=== PATIENT | male | born 1975 | race Caucasian/White ===

== ENCOUNTER 2020-06-10 09:57 | Outpatient (REF) | payer MEDICARE, MEDICAID, SELFPAY ==
[2020-06-10 11:09] LABS: MANUAL DIFF FLAG NO
[2020-06-10 11:33] LABS: Basophils Absolute Auto 0.1 X10*3/uL (0.0-0.2); Basophils Percent Auto 0.8 % (0-2); Eosinophils Percent Auto 0.6 % (0-4); Hematocrit 40.9 % (42-52); Hemoglobin 14.2 g/dl (14.0-18.0); Imm Gran Abs Auto 0.03 X10*3/uL (0.00-0.03); Imm Gran Pct Auto 0.5 % (0.0-0.4); Lymphocytes Absolute Auto 1.2 X10*3/uL (1.2-4.9); Lymphocytes Percent Auto 18.3 % (20-40); Mean Corpuscular HGB Conc 34.7 g/dl (31.0-36.0); Mean Corpuscular Hemoglobin 32.5 pg (27.0-33.0); Mean Corpuscular Volume 93.6 fL (80-98); Monocytes Absolute Auto 0.7 X10*3/uL (0.1-1.2); Monocytes Percent Auto 10.7 % (2-11); Neutrophils Absolute Auto 4.5 X10*3/uL (2.0-8.3); Neutrophils Percent Auto 69.1 % (45-73); Platelet Count 316 X10*3/uL (160-400); Red Blood Count 4.37 X10*6/uL (4.60-5.80); Red Cell Distribution Width 11.7 % (11.0-16.0); White Blood Count 6.5 X10*3/uL (4.8-10.8)
[2020-06-10 11:48] LABS: Alanine Aminotransferase 16 U/L (0-40); Albumin Level 5.2 g/dL (3.5-5.0); Alkaline Phosphatase 38 U/L (39-117); Anion Gap 15 (12-20); Aspartate Amino Transferase 16 U/L (5-37); Bilirubin Total 0.8 mg/dL (0.0-1.0); Blood Urea Nitrogen 19 mg/dL (9-16); Calcium 9.7 mg/dL (8.4-10.2); Carbon Dioxide 25 mmol/L (22-29); Chloride 100 mmol/L (96-108); Cholesterol 148 mg/dL; Estimated Glomerular Filt Rate > 60; Glucose Fasting 114 mg/dL (60-99); HDL Cholesterol 58 mg/dL; LDL Cholesterol Calculated 80 mg/dl; Potassium 4.2 mmol/l (3.3-5.1); Sodium 136 mmol/L (135-145); Total Protein 7.8 g/dL (6.5-8.0); Triglycerides 50 mg/dL
[2020-06-10 12:09] LABS: T4 Thyroxine 8.9 ug/dL (4.5-12.0); Thyroid Stimulating Hormone 0.53 mIU/mL (0.32-4.0)
[2020-06-10 12:33] LABS: Folate 16.3 ng/mL (> or = 4.0); Vitamin B12 307 pg/mL (200-900)
== END 2020-06-10 09:58 | disposition home or self-care (01) ==
LOC: HO.HMGCLDS 09:57
PROVIDERS: PCP Internal Medicine; Visit Provider Internal Medicine
DX: Z00.00 Encounter for general adult medical examination without abnormal findings (principal); F31.9 Bipolar disorder, unspecified; I10 Essential (primary) hypertension; J45.909 Unspecified asthma, uncomplicated
CPT/HCPCS: 36415; 80053; 80061; 82607; 82746; 84436; 84443; 85025

== ENCOUNTER → 2020-10-01 14:35 | Outpatient (BNVA) | payer MEDICARE, MEDICAID, SELFPAY | PROVIDERS: PCP Internal Medicine; Visit Provider Internal Medicine | DX: Q25.1 Coarctation of aorta (principal); I10 Essential (primary) hypertension | CPT/HCPCS: 93005; 99212 ==

== ENCOUNTER 2021-02-19 09:36 | Outpatient (REF) | payer MEDICARE, MEDICAID, SELFPAY ==
--- NOTE | ~2021-02-19 | XR_ITS ---
EXAMINATION: XR LUMBOSACRAL SPINE CLINICAL INFORMATION: Radiculopathy COMPARISON: Previous x-ray December 2012 TECHNIQUE: Three views of the lumbosacral spine. FINDINGS: There is mild rotary scoliosis convex to the right. Bone alignment is otherwise normal. No fracture or dislocation is seen. There may be degenerative disc disease at L5-S1 and lower lumbar spine facet arthritis. Paraspinal soft tissues are normal. XR/XR lumbar spine 2-3V IMPRESSION: Mild scoliosis convex to the right. Question mild degenerative disc disease at L5-S1 and lower lumbar spine facet arthritis.
== END 2021-02-19 09:37 | disposition home or self-care (01) ==
LOC: HO.HMGCX 09:36
PROVIDERS: PCP Internal Medicine; Visit Provider Physician Assistant
DX: M54.16 Radiculopathy, lumbar region (principal)
CPT/HCPCS: 72100

== ENCOUNTER 2021-04-01 14:00 | Outpatient (RCR) | payer MEDICARE, MEDICAID, SELFPAY ==
--- NOTE | 2021-03-09 18:53 | MHC.PT.EP ---
[facility] [place] Office [place] Office [place] Office [address] Mercy Hunt [address] [phone] F: [phone] F: [phone] F: [phone] F: [phone] Physical Therapy Plan of Care Date of Evaluation: Date of Surgery: Diagnosis: Lumbosacral DDD with R sided sciatica. Assessment: Pt is 45 yo/m referred to PT for eval/treat of his Lumbosacral DDD and R sided sciatica. S/s are consistent with lumbopelvic dysfunction resulting in pt being unable to lift heavy objects of floor and decreased tolerance with standing activities for longer duration due to pain in his R lateral thigh and around R lateral lumbar region secondary to asymmetrical pelvic bone, decreased LE strength, and LLD. Pt is deemed an appropriate candidate to receive skilled PT in order to address his physical limitations to improve his functional ability. Frequency and Duration: The patient will be seen 2x/wk for 4wk Short Term Goals: initiate HEP with evidence compliance Retirement Goals: pt will report being able to lift heavy weights w/o increased pain; initial rating - pain prevent me from lifting heavy weights off of the floor (Jose) pt will report being able to stand as long as he wanted without increased pain; initial rating - pain prevents me from standing more than 1 hour (Jose) Treatment Plan: Modalities to reduce pain, spasms and effusion. Manual therapy to restore motion and function. Therapeutic exercise to improve strength and flexibility. Neuromuscular re-education for posture and balance. Therapeutic activities to return to functional activities of daily living. Electronically signed by: Farrukh Salinas PT Please sign and return to therapist. Thank you for your referral.
--- NOTE | 2021-04-01 15:10 | MHC.PT.DC ---
[facility] [place] Office [place] Office [place] Office [address] Mercy Hunt [address] [phone] F: [phone] F: [phone] F: [phone] F: [phone] Physical Therapy Discharge Report Diagnosis: Lumbosacral DDD with R sided sciatica. Date of Surgery: Date of Evaluation: 03/09/21 Date of Discharge: 04/01/21 Treatments to Date: 6 Cancellations to Date: No Shows to Date: Discharge Status: Achieved Goals Improved Function Independent with HEP Discharge Summary: Guerrero initially came to PT for his LBP that traveled to his R buttock which limited his functional abilities. Upon evaluation, listed impairments were found: asymmetrical pelvic bone, decreased LE strength, and LLD. Guerrero has been extremely compliant with his HEP and active participant during treatment session. W/in just 6 visits, guerrero was able to accomplish both this short and long term acute care registered nurse goals. On the day of DC, Guerrero is not experiencing any pain and is able to fully participate in all of his functional activities without pain or physical limitations. At this time, PT agrees it is appropriate to DC guerrero and encourages him to cont. participating in his HEP. Electronically signed by: Francis Harper PT Please sign and return to therapist. Thank you for your referral.
== END 2021-04-01 15:11 | disposition home or self-care (01) ==
LOC: HO.PTCHIC 14:00
PROVIDERS: PCP Internal Medicine; Visit Provider Physician Assistant
DX: M51.9 Unspecified thoracic, thoracolumbar and lumbosacral intervertebral disc disorder (principal); M54.31 Sciatica, right side
CPT/HCPCS: 97110; 97140; 97161

== ENCOUNTER 2021-06-26 09:09 | Outpatient (REF) | payer MEDICARE, MEDICAID, SELFPAY ==
[2021-06-26 11:11] LABS: MANUAL DIFF FLAG NO
[2021-06-26 11:18] LABS: Basophils Absolute Auto 0.1 X10*3/uL (0.0-0.2); Basophils Percent Auto 0.8 % (0-2); Eosinophils Absolute Auto 0.1 X10*3/uL (0.0-0.4); Eosinophils Percent Auto 1.1 % (0-4); Hematocrit 43.4 % (42.0-52.0); Imm Gran Abs Auto 0.02 X10*3/uL (0.00-0.03); Imm Gran Pct Auto 0.3 % (0.0-0.4); Lymphocytes Absolute Auto 0.9 X10*3/uL (1.2-4.9); Lymphocytes Percent Auto 15.2 % (20-40); Mean Corpuscular HGB Conc 34.6 g/dl (31.0-36.0); Mean Corpuscular Hemoglobin 32.4 pg (27.0-33.0); Mean Corpuscular Volume 93.7 fL (80.0-98.0); Mean Platelet Volume 10.5 fL (9.4-12.4); Monocytes Absolute Auto 0.5 X10*3/uL (0.1-1.2); Monocytes Percent Auto 8.3 % (2-11); Neutrophils Absolute Auto 4.6 x10*3/uL (2.0-8.3); Neutrophils Percent Auto 74.3 % (45-73); Platelet Count 270 X10*3/uL (160-400); Red Blood Count 4.63 X10*6/uL (4.60-5.80); Red Cell Distribution Width 11.7 % (11.0-16.0); White Blood Count 6.2 X10*3/uL (4.8-10.8)
[2021-06-26 11:28] LABS: Estimated Average Glucose 108 mg/dL; Hemoglobin A1c % 5.4 %
[2021-06-26 11:37] LABS: Alanine Aminotransferase 18 U/L (0-40); Albumin Level 4.8 g/dL (3.5-5.0); Alkaline Phosphatase 36 U/L (39-117); Anion Gap 12 (12-20); Aspartate Amino Transferase 15 U/L (5-37); Bilirubin Total 0.8 mg/dL (0.0-1.0); Blood Urea Nitrogen 15 mg/dL (9-16); Calcium 9.9 mg/dL (8.4-10.2); Carbon Dioxide 26 mmol/L (22-29); Chloride 102 mmol/L (96-108); Cholesterol 164 mg/dL; Estimated Glomerular Filt Rate > 60; Glucose Random 96 mg/dL (60-115); HDL Cholesterol 46 mg/dL; LDL Cholesterol Calculated 105 mg/dl; Potassium 4.4 mmol/L (3.3-5.1); Sodium 136 mmol/L (135-145); Total Protein 7.5 g/dL (6.5-8.0); Triglycerides 68 mg/dL
[2021-06-26 11:51] LABS: Free T4 (Free Thyroxine) 1.05 ng/dL (0.71-1.85); Thyroid Stimulating Hormone 0.56 uIU/mL (0.32-4.0)
[2021-06-28 04:29] LABS: Folate 13.5 ng/mL (> or = 4.0); Vitamin B12 280 pg/mL (200-900)
== END 2021-06-26 09:10 | disposition home or self-care (01) ==
LOC: HO.HMGCLDS 09:09
PROVIDERS: PCP Internal Medicine; Visit Provider Internal Medicine
DX: R73.02 Impaired glucose tolerance (oral) (principal); E78.00 Pure hypercholesterolemia, unspecified
CPT/HCPCS: 36415; 80053; 80061; 82607; 82746; 83036; 84439; 84443; 85025

== ENCOUNTER 2021-09-01 10:21 | Outpatient (REF) | payer MEDICARE, MEDICAID, SELFPAY ==
[2021-09-01 11:57] LABS: Anion Gap 12 (12-20); Blood Urea Nitrogen 13 mg/dL (9-16); Calcium 9.9 mg/dL (8.4-10.2); Carbon Dioxide 29 mmol/L (22-29); Chloride 101 mmol/L (96-108); Estimated Glomerular Filt Rate > 60; Glucose Random 86 mg/dL (60-115); Potassium 4.5 mmol/L (3.3-5.1); Sodium 137 mmol/L (135-145)
== END 2021-09-01 10:22 | disposition home or self-care (01) ==
LOC: HO.HMGCLDS 10:21
PROVIDERS: Visit Provider Internal Medicine
DX: I10 Essential (primary) hypertension (principal)
CPT/HCPCS: 36415; 80048

== ENCOUNTER → 2021-09-09 12:50 | Outpatient (REF) | payer MEDICARE, MEDICAID, SELFPAY ==
--- NOTE | 2021-09-09 12:57 | CA_ITS ---
Transthoracic Echocardiogram Patient (Last, First, Middle): Guerrero Rahman E Gender: Male Date of : 1975 Age: 46 Procedure Date: 09/09/2021 Procedure Type: Transthoracic Echocardiogram Location: OP Height: 185.42 cm Weight: 101.15 kg BSA: 2.25 m2 Heart Rate: bpm BP: 130 / 80 mmHg Clockmaker Apprentice: WILD Referring MD: David Vanegas MD Symptoms: Q25.1 - Coarctation of aorta Study Quality: Fair ECG Rhythm: Sinus Conclusions: - The left ventricular systolic function is normal. The calculated ejection fraction is 56% by biplane method. - There is no dilatation of the ascending aorta measuring 2.80 cm and no dilatation of the aortic arch measuring 2.40 cm. - Peak gradient at proximal descending thoracic aorta 13mmHg. Mildly elevated. Findings Left Ventricle Normal left ventricular cavity size. There is normal left ventricular wall thickness. The left ventricular systolic function is normal. The calculated ejection fraction is 56% by biplane method. There is no evidence of regional wall motion abnormalities. Diastolic function is normal for age. Right Ventricle Normal right ventricular cavity size and systolic function. Atria Both atria are normal in size. Aortic Valve There is a normal trileaflet aortic valve. There is no aortic valve stenosis. There is trace (trivial) aortic valve regurgitation. Mitral Valve The mitral valve appears normal. There is no mitral valve regurgitation. There is no mitral valve stenosis. Pulmonic Valve The pulmonic valve was not well visualized. Tricuspid Valve Normal tricuspid valve structure. There is trace tricuspid valve regurgitation. The pulmonary artery systolic pressure is normal. Great Vessels There is no dilatation of the ascending aorta measuring 2.80 cm and no dilatation of the aortic arch measuring 2.40 cm. Peak gradient at proximal descending thoracic aorta 13mmHg. Venous The inferior vena cava is normal in size and collapses greater than 50% with inspiration. Pericardium/Pleural There is no evidence of pericardial effusion. Prior Study Comparison No significant change compared to prior study dated: 08/28/2018. Aortic velocities not previously described. Measurements 2D Linear Measurements IVSd: 1.01 0.6-0.9/0.6-1.0 cm LVIDd: 4.40 3.9-5.3/4.2-5.9 cm LVIDd Index: 1.96 2.4-3.2/2.2-3.1 cm/m2 LVIDs: 2.76 2.0-3.6 cm LVPWd: 0.96 0.7-1.1 cm Ao Root: 4.10 2.1-3.5 cm LA Diam: 3.00 2.7-3.8/3.0-4.0 cm LAIDs Index: 1.33 1.5-2.3 cm/m2 LV Mass: 180.60 67-162/88-224 g LV Mass Index: 80.27 43-95/49-115 g/m2 LVOT Diam: 2.30 3.0+(-)1.3 cm 2D Systolic Function EF 4C: 57.80 >55% EF 2C: 51.20 >55% EF BiP: 56.00 >55% Mitral Valve MV Pk E: 0.46 MV PK A: 0.63 MV Decel Time: 212.00 E/A: 0.70 E'Lateral: 9.57 E'Medial: 12.70 E/E' Med: 3.60 E/E' Lat: 4.80 PHT: 62.00 MVA PHT: 3.[address] [place]: 2.17 Aortic Valve AoV Pk Mychal: 1.16 AoV Mn Mychal: 0.87 AoV VTI: 0.18 AoV Pk Grad: 5.00 Aov Mn Grad: 3.00 ISSAC Cont.VTI: 3.36 LVOT LVOT Pk Mychal: 0.94 LVOT Mn Mychal: 0.62 LVOT VTI: 0.15 LVOT Pk Grad: 4.00 LVOT Mn Grad: 2.00 LVOT Diam: 2.30 LVOT Area: 4.15 Diastolic Function MV Pk E: 0.46 MV Pk A: 0.63 E/A: 0.70 E'Medial: 12.70 E/E' Med: 3.60 E' Laterial: 9.57 E/E' Lat: 4.80 Right Ventricle TAPSE (mm): 22.00 TVS' Mychal: 15.00 Tricuspid Valve TR Pk Mychal: 2.52 TR Pk Grad: 25.00 RA Press: 3.00 RVSP: 28.00 Great Vessels Aorta Ao Root-2D: 4.10 2.0-3.7 cm Ao Asc: 2.80 2.1-3.4 cm Ao Arch: 2.40 Updated in Other Vendor System with Status of Final David Vanegas MD electronically signed on 09/11/2021 1:15:32 PM with status of Final
== END ==
LOC: HO.CARD 12:50
PROVIDERS: PCP Internal Medicine; Visit Provider Internal Medicine
DX: Q25.1 Coarctation of aorta (principal)
CPT/HCPCS: 93306

== ENCOUNTER → 2021-10-04 14:29 | Outpatient (BNVA) | payer MEDICARE, MEDICAID, SELFPAY | PROVIDERS: PCP Internal Medicine; Referring Provider Internal Medicine; Visit Provider Internal Medicine | DX: I10 Essential (primary) hypertension (principal); Q25.1 Coarctation of aorta; Z79.899 Other long term (current) drug therapy | CPT/HCPCS: 93005; 99212 ==

== ENCOUNTER → 2022-09-29 08:40 | Outpatient (REF) | payer MEDICARE, MEDICAID, SELFPAY ==
--- NOTE | 2022-09-29 08:44 | CA_ITS ---
Transthoracic Echocardiogram Patient (Last, First, Middle): Guerrero Rahman E Gender: Male Date of : 1975 Age: 47 Procedure Date: 09/29/2022 Procedure Type: Transthoracic Echocardiogram Location: OP Height: 185.42 cm Weight: 95.71 kg BSA: 2.20 m2 Heart Rate: 60 bpm BP: 125 / 80 mmHg Welder Fitter: XIAO Referring MD: David Vanegas MD Symptoms: Q25.1 - Coarctation of aorta Study Quality: Fair ECG Rhythm: Sinus Conclusions: - The left ventricular systolic function is low normal. The visually estimated ejection fraction is between 50-55%. - Peak gradient across proximal descending thoracic aorta 21mmHg. - Descending part of arch measurement about 1.3cm, probably site of co-arctation repair. Findings Left Ventricle Normal left ventricular cavity size. There is normal left ventricular wall thickness. The left ventricular systolic function is low normal. The visually estimated ejection fraction is between 50-55%. There is no evidence of regional wall motion abnormalities. Diastolic function is normal for age. Right Ventricle Normal right ventricular cavity size and systolic function. Atria Both atria are normal in size. Aortic Valve There is a normal trileaflet aortic valve. There is no aortic valve stenosis. There is no aortic valve regurgitation. Mitral Valve The mitral valve appears normal. There is no mitral valve regurgitation. There is no mitral valve stenosis. Pulmonic Valve The pulmonic valve is likely normal. Tricuspid Valve Normal tricuspid valve structure. There is trace tricuspid valve regurgitation. There is no evidence of pulmonary hypertension. Great Vessels The asc aorta is normal in size. Peak gradient across proximal descending thoracic aorta 21mmHg. Descending part of arch measurement about 1.3cm, probably site of co-arctation repair. Some measurement as much as 0.9cm, but not clear if accurate or not. Venous The inferior vena cava is normal in size and collapses greater than 50% with inspiration. Pericardium/Pleural There is no evidence of pericardial effusion. Prior Study Comparison Changes noted compared to prior study dated: 09/09/2021. Increase in aortic gradients. Measurements 2D Linear Measurements IVSd: 0.96 0.6-0.9/0.6-1.0 cm LVIDd: 4.20 3.9-5.3/4.2-5.9 cm LVIDd Index: 1.91 2.4-3.2/2.2-3.1 cm/m2 LVIDs: 2.89 2.0-3.6 cm LVPWd: 1.02 0.7-1.1 cm LA Diam: 3.10 2.7-3.8/3.0-4.0 cm LAIDs Index: 1.41 1.5-2.3 cm/m2 LV Mass: 168.66 67-162/88-224 g LV Mass Index: 76.66 43-95/49-115 g/m2 LVOT Diam: 2.20 3.0+(-)1.3 cm 2D Systolic Function EF 4C: 48.70 >55% EF 2C: 49.40 >55% EF BiP: 47.90 >55% Mitral Valve MV Pk E: 0.52 MV PK A: 0.74 MV Decel Time: 241.00 E/A: 0.70 E'Lateral: 10.70 E'Medial: 6.96 E/E' Med: 7.40 E/E' Lat: 4.80 PHT: 71.00 MVA PHT: 3.10 Decel [place]: 2.15 Aortic Valve AoV Pk Mychal: 1.29 AoV Mn Mychal: 0.84 AoV VTI: 0.25 AoV Pk Grad: 7.00 Aov Mn Grad: 3.00 ISSAC Cont.VTI: 2.39 LVOT LVOT Pk Mychal: 0.80 LVOT Mn Mychal: 0.57 LVOT VTI: 0.16 LVOT Pk Grad: 3.00 LVOT Mn Grad: 2.00 LVOT Diam: 2.20 LVOT Area: 3.80 Diastolic Function MV Pk E: 0.52 MV Pk A: 0.74 E/A: 0.70 E'Medial: 6.96 E/E' Med: 7.40 E' Laterial: 10.70 E/E' Lat: 4.80 Right Ventricle TAPSE (mm): 20.90 TVS' Mychal: 16.00 Tricuspid Valve TR Pk Mychal: 1.64 TR Pk Grad: 11.00 RA Press: 3.00 RVSP: 14.00 Great Vessels Aorta Sinus of Valsalva: 3.80 2.0-3.5 cm Ao Asc: 3.00 2.1-3.4 cm Ao Arch: 2.10 Ao Desc: 1.30 Pulmonary Valve PV Pk Mychal: 0.79 Peak PV Grad: 3.00 Updated in Other Vendor System with Status of Final David Vanegas MD electronically signed on 10/11/2022 11:40:11 AM with status of Final
== END ==
LOC: HO.CARD 08:40
PROVIDERS: Visit Provider Internal Medicine
DX: Q25.1 Coarctation of aorta (principal)
CPT/HCPCS: 93306

== ENCOUNTER 2022-11-16 12:26 | Outpatient (REF) | payer MEDICARE, MEDICAID, SELFPAY ==
[2022-11-16 14:44] LABS: Anion Gap 11 (12-20); Blood Urea Nitrogen 20 mg/dL (9-16); Calcium 9.4 mg/dL (8.4-10.2); Carbon Dioxide 29 mmol/L (22-29); Chloride 105 mmol/L (96-108); Estimated Glomerular Filt Rate > 60; Glucose Random 109 mg/dL (60-115); Potassium 3.9 mmol/L (3.3-5.1); Sodium 141 mmol/L (135-145)
== END 2022-11-16 12:27 | disposition home or self-care (01) ==
LOC: HO.HMGCLDS 12:26
PROVIDERS: PCP Internal Medicine; Visit Provider Internal Medicine
DX: Z01.812 Encounter for preprocedural laboratory examination (principal)
CPT/HCPCS: 36415; 80048

== ENCOUNTER → 2022-12-07 08:27 | Outpatient (BNVA) | payer MEDICARE, MEDICAID, SELFPAY | PROVIDERS: PCP Internal Medicine; Referring Provider Internal Medicine; Visit Provider Internal Medicine | DX: Q25.1 Coarctation of aorta (principal); I10 Essential (primary) hypertension | CPT/HCPCS: 93005; 99212 ==

== ENCOUNTER 2023-06-27 09:36 | Outpatient (AMB) | payer MEDICARE, MEDICAID, SELFPAY ==
[2023-06-27 09:38] VITALS: BP 170/78; PULSE 113; O2SAT 100; BMI 28.8
--- NOTE | 2023-06-27 09:38 | MHC.PC.OV ---
Vital Signs 06/27/23 09:38 06/27/23 10:03 Height 6 ft 1 in Weight 218 lb BMI 28.8 BP 170/78 H 140/80 H Blood Pressure Location Lt brachial Lt brachial Position Sitting Sitting Pulse 113 H Pulse Source Pulse Oximeter Pulse Oximetry (%) 100 Oxygen Delivery Method Room Air Intake Visit Reasons: Hypertension Batch Tank Controller Required: No Auto Body Painter: Not Required per policy Accompanied by: Self / Same As Patient Allergies adhesive tape [ADHESIVE TAPE] Allergy (Unknown, Verified 06/27/23 09:38) RASH bupropion [From WELLBUTRIN] Allergy (Unknown, Verified 06/27/23 09:38) HIVES carbamazepine [From TEGRETOL] Allergy (Unknown, Verified 06/27/23 09:38) HIVES latex [LATEX] Allergy (Unknown, Verified 06/27/23 09:38) RASH levofloxacin [Levaquin] Allergy (Unknown, Verified 06/27/23 09:38) confusion as per patient, hallucinations terbinafine [From Lamisil] Adverse Reaction (Intermediate, Verified 06/27/23 09:38) Dizziness Tobacco use date assessed: 06/27/23 Dental Screening Dental Screen Date: 06/27/23 Did you have a dental visit in the last 12 months?: Yes Did you have a dental problem in the last 6 months where you did not have access to dental care?: No Was dental information given to patient?: Patient has dentist HPI Hypertension HPI Details 47-year-old overweight male with a history of bipolar disorder, repaired coarctation of the aorta (angioplasty 1991) asthma impaired glucose tolerance GERD and hypertension comes in for follow-up. Last seen in January 2022.. Patient follows up with nurse practitioner for annual well visit. Patient was referred to Gastroenterology for colon testing. Patient also has met with Cardiology December 2022 regarding the history of coarctation of the aorta. BP at home as per patient is good. colon test 07/2023 [facility] Medical History (Updated 06/27/23 @ 10:00 by Nadya Piper MD) Screening for colon cancer Lumbar radiculopathy, acute Sciatica Overweight (BMI 25.0-29.9) Essential hypertension Mental and behavioral problem Coarctation of aorta Vitamin D deficiency Asthma Bipolar disorder Hypertension Surgical History History of skin cancer H/O basal cell carcinoma excision History of incision and drainage History of angioplasty Family History Father Stomach cancer Bladder cancer Hypertension Mother Hypertension COPD (chronic obstructive pulmonary disease) Heart disease Sleep apnea Mental problem Maternal Uncle Skin cancer Maternal Grandfather Heart disease Housing: Assisted Living Facility (shared living) Alcohol intake: never Patient Tobacco Use Status: Never used Tobacco e-Cigarette/Vaping Use: Never Used Second Hand Smoke Exposure: No service: No Current occupational status: employed Current occupation: [employer] Cognitive needs: No Hearing needs: No Vision needs: Yes (Glasses) Questionnaire PHQ-9 Over the last 2 weeks, how often have you been bothered by any of the following problems? 1. Little interest or pleasure in doing things: not at all 2. Feeling down, depressed, or hopeless: not at all 3. Trouble falling or staying asleep, or sleeping too much: not at all 4. Feeling tired or having little energy: not at all 5. Poor appetite or overeating: not at all 6. Feeling bad about yourself - or that you are a failure or have let yourself or your family down: not at all 7. Trouble concentrating on things, such as reading the newspaper or watching television: not at all 8. Moving or speaking so slowly that other people could have noticed. Or the opposite - being so fidgety or restless that you have been moving around a lot more than usual: not at all 9. Thoughts that you would be better off or of hurting yourself in some way: not at all Total score: 0 Depression Screening Interpretation: Negative Depression Screening Done: Yes 96311 - PHQ-9 Billing: Yes Source: Developed by Drs. Ranulfo Noriega, Rema James, Galdino Krueger and colleagues, with an educational imer from [employer] Thrive Questionnaire Date Thrive assessed: 12/21/22 AUDIT C Alcohol Use Questionnaire (AUDIT-C) 1. How often do you have a drink containing alcohol?: Never 3. How often do you have six or more drinks on one occasion?: Never Total Score: 0 Score Reviewed/Action Taken: No TONY-7 AMB Questionnaire TONY-7 Date TONY - 7 assessed: 12/21/22 Source: Developed by Drs. Ranulfo Noriega, Rema James, Galdino Krueger and colleagues, with an educational imer from [employer] Physical exam (Primary Care) Vital Signs: Last Vital Signs Pulse 113 H 06/27/23 09:38 BP 140/80 H 06/27/23 10:03 Pulse Ox 100 06/27/23 09:38 Oxygen Delivery Method Room Air 06/27/23 09:38 BMI result Body Mass Index 28.8 Tobacco/Smoking Status: Tobacco use Status Tobacco use date assessed 06/27/23 06/27/23 09:39 Patient Tobacco Use Status Never used Tobacco 06/27/23 09:39 e-Cigarette/Vaping Use Never Used 06/27/23 09:39 PHQ-9: PHQ-9 Score PHQ-9: Total score 0 06/27/23 10:00 Depression Screening Interpretation: Negative Thrive Assessment: Date of Thrive Assessment Date Thrive assessed 12/21/22 06/27/23 09:39 Const General: alert; No acute distress Eyes Conjunctivae: conjunctivae normal Resp Auscultation: clear to auscultation bilaterally Cardio Rate: regular rate Rhythm: regular rhythm GI Inspection: Yes normal to inspection Extrem General: Yes normal to inspection and No edema Office Procedures Flu Questionnaire Does the patient have a severe egg allergy?: No Does the patient have severe life threatening allergies?: No Does the patient have a fever or illness today?: No Has the patient ever had Guillain-[place] Syndrome?: No Has the patient ever had any past reaction to a flu shot?: No Immunizations flu vacc [id number] 6mos up(PF) 60 mcg(15 mcgx4)/0.5 mL IM syringe Performing Provider: Nadya Piper MD [facility] Administered by: JADE Edwards on 06/27/23 10:16 Dose Route Admin Location Dispensed Lot Number Expiration Date NDC Rn Paralegal 0.5 mL IM Left Deltoid 0.5 mL [id number] 02/04/24 [id number] Liquipel VIS Given Date VIS Provided VIS Publication Date 06/27/23 Single Vaccine 21 Eligibility Eligibility Date Funding Source Not VFC Eligible 06/27/23 Private Assessment and Plan Assessment & Plan (1) Bipolar disorder: Comment: Dr. Wills Code(s): F31.9 - Bipolar disorder, unspecified Qualifiers: Active/Remission status: currently active Current bipolar episode type: manic Current episode severity: mild Qualified Code(s): F31.11 - Bipolar disorder, current episode manic without psychotic features, mild Plan: Continue to follow-up with psychiatry (2) Asthma: Code(s): J45.909 - Unspecified asthma, uncomplicated Qualifiers: Asthma complication type: uncomplicated Asthma persistence: intermittent Asthma severity: mild Qualified Code(s): J45.20 - Mild intermittent asthma, uncomplicated Plan: Continue with inhaler as needed (3) Coarctation of aorta: Comment: Discrete side of coarctation be on left subclavian origin, treated by balloon angioplasty in 1991. Code(s): Q25.1 - Coarctation of aorta Plan: Patient is being followed up by Cardiology stable (4) Overweight (BMI 25.0-29.9): Code(s): E66.3 - Overweight Plan: Diet and exercise (5) GERD (gastroesophageal reflux disease): Code(s): K21.9 - Gastro-esophageal reflux disease without esophagitis Qualifiers: Esophagitis presence: without esophagitis Qualified Code(s): K21.9 - Gastro-esophageal reflux disease without esophagitis Plan: Avoid the foods that causes that usually spicy foods, tomato products, juices, coffee, soda and foods that your sensitive to. After eating do not lie down, allow 3-4 hours before in lie down. And keep the head of bed above 30 degrees to avoid the acid from going up. (6) Essential hypertension: Code(s): I10 - Essential (primary) hypertension Plan: Blood pressure patient takes lisinopril 40 mg once a day hydrochlorothiazide 12.5 mg once a day (7) Impaired glucose tolerance: Code(s): R73.02 - Impaired glucose tolerance (oral) Plan: Decrease the amount of carbohydrate intake, pasta, bread, rice and potatoes are all sugar and that is aside from all the sweet stuff, remember that fruits are good but they are Sweet also. Orders: Orders Complete Blood Count Auto Diff Today I10 - Essential (primary) hypertension Comprehensive Met. Panel Today I10 - Essential (primary) hypertension Free T4 (Free Thyroxine) Today I10 - Essential (primary) hypertension Hemoglobin A1c Today I10 - Essential (primary) hypertension Vitamin B12 and Folate Today I10 - Essential (primary) hypertension Magnesium Today I10 - Essential (primary) hypertension Influenza [id number] Immunization Today Z23 - Encounter for immunization Lipid Panel Today E78.00 - Pure hypercholesterolemia, unspecified, I10 - Essential (primary) hypertension Thyroid Stimulating Hormone Today I10 - Essential (primary) hypertension Coding Level of Care Code Est Pt Level 4 (45233) Diagnoses Bipolar affective disorder, currently manic, mild F31.11 Active/Remission status: currently active Current bipolar episode type: manic Current episode severity: mild Mild intermittent asthma without complication J45.20 Asthma complication type: uncomplicated Asthma persistence: intermittent Asthma severity: mild Coarctation of aorta Q25.1 Overweight (BMI 25.0-29.9) E66.3 Gastroesophageal reflux disease without esophagitis K21.9 Esophagitis presence: without esophagitis Essential hypertension I10 Impaired glucose tolerance R73.02
[2023-06-27 10:03] VITALS: BP 140/80
== END 2023-06-27 10:18 | disposition home or self-care (01) ==
PROVIDERS: Visit Provider Internal Medicine
DX: Z23 Encounter for immunization (principal)
CPT/HCPCS: 90471; 90686; 99214

== ENCOUNTER 2023-07-06 11:01 | Outpatient (AMB) | payer MEDICARE, MEDICAID, SELFPAY ==
[2023-07-06 13:24] VITALS: BP 150/82; PULSE 91; TEMP 36.6; O2SAT 97; BMI 28.8
--- NOTE | 2023-07-06 13:24 | AM.OFFWIN_ITS ---
Intake Vital Signs 07/06/23 13:24 Height 6 ft 1 in Weight 218 lb BMI 28.8 BP 150/82 H Blood Pressure Location Lt brachial Position Sitting Pulse 91 Pulse Source Pulse Oximeter Temp 97.8 F Temp Source Temporal Artery Scan Pulse Oximetry (%) 97 Oxygen Delivery Method Room Air Intake Visit Reasons: EST/rash under arms from body wash [phone] Intake Note: pt is here for c/o rash under arms possibly from body wash used Patient Tobacco Use Status: Never used Tobacco Allergies adhesive tape [ADHESIVE TAPE] Allergy (Unknown, Verified 07/06/23 13:29) RASH bupropion [From WELLBUTRIN] Allergy (Unknown, Verified 07/06/23 13:29) HIVES carbamazepine [From TEGRETOL] Allergy (Unknown, Verified 07/06/23 13:29) HIVES latex [LATEX] Allergy (Unknown, Verified 07/06/23 13:29) RASH levofloxacin [Levaquin] Allergy (Unknown, Verified 07/06/23 13:29) confusion as per patient, hallucinations terbinafine [From Lamisil] Adverse Reaction (Intermediate, Verified 07/06/23 13:29) Dizziness Do you need a note to return to daycare/school/sports/work: Yes HPI HPI Comments History of Present Illness Details The patient presents Urgent Care for evaluation of a rash in his armpits that started a couple of days ago. Patient reports using a new deodorant once and then the rash developed. He has not used it again. The rash is slightly itchy. It is somewhat scaly. No drainage PFSH Medical History (Updated 06/27/23 @ 10:00 by Nadya Piper MD) Screening for colon cancer Lumbar radiculopathy, acute Sciatica Overweight (BMI 25.0-29.9) Essential hypertension Mental and behavioral problem Coarctation of aorta Vitamin D deficiency Asthma Bipolar disorder Hypertension Surgical History History of skin cancer H/O basal cell carcinoma excision History of incision and drainage History of angioplasty Family History Father Stomach cancer Bladder cancer Hypertension Mother Hypertension COPD (chronic obstructive pulmonary disease) Heart disease Sleep apnea Mental problem Maternal Uncle Skin cancer Maternal Grandfather Heart disease Social History Housing: Assisted Living Facility (shared living) Alcohol intake: never Patient Tobacco Use Status: Never used Tobacco e-Cigarette/Vaping Use: Never Used Second Hand Smoke Exposure: No service: No Current occupational status: employed Current occupation: [employer] Cognitive needs: No Hearing needs: No Vision needs: Yes (Glasses) Review of Systems Eyes Reports no additional complaints ENT Reports Normal hearing present and Denies dysphagia Card Denies dyspnea and Denies slow heart rate Resp Denies cough and Denies dyspnea GI Denies dysphagia and Denies heartburn Denies dysuria Musc Denies tingling Skin/Breast Reports lesions, Denies skin ulcer and Denies unusual bruising Neuro Reports Normal hearing present, Denies Sensory deficit (Neuro), Denies tingling and Denies paresthesias Physical Exam Vital Signs: Last Vital Signs Temp 97.8 F 07/06/23 13:24 Pulse 91 07/06/23 13:24 BP 150/82 H 07/06/23 13:24 Pulse Ox 97 07/06/23 13:24 Oxygen Delivery Method Room Air 07/06/23 13:24 BMI result Body Mass Index 28.8 Const General: healthy appearing and no acute distress Resp Effort & Inspection: normal respiratory effort and able to speak in complete sentences Skin Other: Bilateral axilla: Flat erythematous scaling rash. Nontender no drainage Neuro Cranial nerves: Yes Normal hearing present Sensory Exam: No Sensory deficit (Neuro) Assessment & Plan Assessment & Plan (1) Contact dermatitis: Code(s): L25.9 - Unspecified contact dermatitis, unspecified cause Plan Symptoms consistent with contact dermatitis from the new deodorant. Patient was advised to discontinue use of it in addition will recommend avoidance of deodorant under his armpits until rash completely resolved. The rash is not distinctly very itchy and therefore will hold off on steroid cream. Described to patient that he could use [id number] topical hydrocortisone twice a day if the itching became more of an issue. The rash will resolve on its own in time. Coding Level of Care Code Est Pt Level 3 (82892) Diagnoses Contact dermatitis L25.9
== END 2023-07-06 14:42 | disposition home or self-care (01) ==
PROVIDERS: PCP Internal Medicine; Visit Provider Emergency Medicine
DX: L25.9 Unspecified contact dermatitis, unspecified cause (principal)
CPT/HCPCS: 99213

== ENCOUNTER 2023-07-11 06:45 | Day surgery (SDC) | payer MEDICARE, MEDICAID, SELFPAY ==
[2023-07-07 13:59] VITALS: BMI 27.6
[2023-07-11 07:31] VITALS: BMI 28.1
[2023-07-11 07:39] VITALS: BP 148/85; PULSE 94; RESP 16; TEMP 36.6; O2SAT 99
[2023-07-11] MEDS: Lactated Ringers 1,000 ML 100 ML IVCONT (07:43)
--- NOTE | 2023-07-11 08:15 | HO.ANESPROP2 ---
Documented by User: Shruthi Montelongo NP 07/10/23 13:29 HPI - Anesthesia Eval Consult details Narrative: 47yo M for Upper Endoscopy and Colonoscopy [facility] Active Problems Active Problems: All Active Problems (Updated 06/27/23 @ 10:00 by Nadya Piper MD) Dizziness (Acute) Paronychia of finger of right hand (Acute) Onychomycosis (Acute) Physical exam (Acute) Viral illness (Acute) Adult general medical exam (Acute) Allergic rhinitis (Acute) GERD (gastroesophageal reflux disease) (Acute) Overweight (BMI 25.0-29.9) (Acute) Mental and behavioral problem (Acute) Coarctation of aorta (Acute) Essential hypertension (Acute) Paronychia (Acute) Impaired glucose tolerance (Acute) Asthma (Acute) Bipolar disorder (Acute) Past Medical History Medical History Screening for colon cancer Lumbar radiculopathy, acute Sciatica Overweight (BMI 25.0-29.9) Essential hypertension Mental and behavioral problem Coarctation of aorta Vitamin D deficiency Asthma Bipolar disorder Hypertension Family History Family History Father Stomach cancer Bladder cancer Hypertension Mother Hypertension COPD (chronic obstructive pulmonary disease) Heart disease Sleep apnea Mental problem Maternal Uncle Skin cancer Maternal Grandfather Heart disease Surgical History Surgical History History of skin cancer H/O basal cell carcinoma excision History of incision and drainage History of angioplasty Social History Social History Housing: Assisted Living Facility (shared living) Alcohol intake: never Patient Tobacco Use Status: Never used Tobacco e-Cigarette/Vaping Use: Never Used Second Hand Smoke Exposure: No Use of substances other than those prescribed or required for medical reasons: No Are you DNR?: No Advance Directives: No Advance Directives Information Provided: Yes service: No Current occupational status: employed Current occupation: [employer] Cognitive needs: No Hearing needs: No Vision needs: Yes (Glasses) Meds Allergies Allergy/AdvReac Type Severity Reaction Status Date / Time adhesive tape [ADHESIVE TAPE] Allergy Unknown RASH Verified 07/06/23 13:29 bupropion [From WELLBUTRIN] Allergy Unknown HIVES Verified 07/06/23 13:29 carbamazepine [From TEGRETOL] Allergy Unknown HIVES Verified 07/06/23 13:29 latex [LATEX] Allergy Unknown RASH Verified 07/06/23 13:29 levofloxacin [Levaquin] Allergy Unknown confusion Verified 07/06/23 13:29 as per patient, hallucinations terbinafine [From Lamisil] AdvReac Intermediate Dizziness Verified 07/06/23 13:29 Home Medications Medication Instructions Recorded Confirmed Last Taken Type fluvoxamine 50 mg tablet 50 mg PO BID 06/30/20 07/07/23 Unknown History lamotrigine 100 mg tablet 100 mg PO DAILY 06/30/20 07/07/23 Unknown History (Lamictal) risperidone 2 mg tablet (Risperdal) 2 mg PO DAILY 06/30/20 07/07/23 Unknown History benztropine 0.5 mg tablet 0.5 mg PO BID 10/01/20 07/07/23 Unknown History clonidine HCl 0.1 mg tablet 0.1 mg PO BEDTIME 10/01/20 07/07/23 Unknown History Exam Height,Weight and Vital Signs: Height 6 ft 1 in Weight 94.801 kg Assessment and Plan Assessment Anesthesia Assessment: Chart Reviewed Documented by User: Grace Benson DO 07/11/23 08:37 [facility] Past Medical History Medical History Screening for colon cancer Lumbar radiculopathy, acute Sciatica Overweight (BMI 25.0-29.9) Essential hypertension Mental and behavioral problem Coarctation of aorta Vitamin D deficiency Asthma Bipolar disorder Hypertension Family History Family History Father Stomach cancer Bladder cancer Hypertension Mother Hypertension COPD (chronic obstructive pulmonary disease) Heart disease Sleep apnea Mental problem Maternal Uncle Skin cancer Maternal Grandfather Heart disease Surgical History Surgical History History of skin cancer H/O basal cell carcinoma excision History of incision and drainage History of angioplasty History of Problems with Anesthesia: No Social History Social History Housing: Assisted Living Facility (shared living) Alcohol intake: never Patient Tobacco Use Status: Never used Tobacco e-Cigarette/Vaping Use: Never Used Second Hand Smoke Exposure: No Use of substances other than those prescribed or required for medical reasons: No Are you DNR?: No Advance Directives: No Advance Directives Information Provided: Yes service: No Current occupational status: employed Current occupation: [employer] Cognitive needs: No Hearing needs: No Vision needs: Yes (Glasses) Meds Allergies Allergy/AdvReac Type Severity Reaction Status Date / Time adhesive tape [ADHESIVE TAPE] Allergy Unknown RASH Verified 07/06/23 13:29 bupropion [From WELLBUTRIN] Allergy Unknown HIVES Verified 07/06/23 13:29 carbamazepine [From TEGRETOL] Allergy Unknown HIVES Verified 07/06/23 13:29 latex [LATEX] Allergy Unknown RASH Verified 07/06/23 13:29 levofloxacin [Levaquin] Allergy Unknown confusion Verified 07/06/23 13:29 as per patient, hallucinations terbinafine [From Lamisil] AdvReac Intermediate Dizziness Verified 07/06/23 13:29 Home Medications Medication Instructions Recorded Confirmed Last Taken Type fluvoxamine 50 mg tablet 50 mg PO BID 06/30/20 07/07/23 Unknown History lamotrigine 100 mg tablet 100 mg PO DAILY 06/30/20 07/07/23 Unknown History (Lamictal) risperidone 2 mg tablet (Risperdal) 2 mg PO DAILY 06/30/20 07/07/23 Unknown History benztropine 0.5 mg tablet 0.5 mg PO BID 10/01/20 07/07/23 Unknown History clonidine HCl 0.1 mg tablet 0.1 mg PO BEDTIME 10/01/20 07/07/23 Unknown History Exam Exam Date and Time: July 11, 2023 0813 Height,Weight and Vital Signs: Height 6 ft 1 in Weight 94.801 kg Vital Signs Temperature 97.9 F 07/11/23 07:39 Pulse Rate 94 07/11/23 07:39 Respiratory Rate 16 07/11/23 07:39 Blood Pressure 148/85 H 07/11/23 07:39 Pulse Oximetry 99 07/11/23 07:39 Oxygen Delivery Method Room Air 07/11/23 07:39 Temperature 97.9 F 07/11/23 07:39 Pulse Rate 94 07/11/23 07:39 Respiratory Rate 16 07/11/23 07:39 Blood Pressure 148/85 H 07/11/23 07:39 Pulse Oximetry 99 07/11/23 07:39 Oxygen Delivery Method Room Air 07/11/23 07:39 Airway Mallampati Class: II TM Dist: >3cm Neck ROM: Full Loose/Missing/Broken Teeth: No Heart: S1S2 Lungs: CTAB Assessment and Plan Assessment Anesthesia Assessment: Anesthesia Plan Discussed and Chart Reviewed Final Anesthetic Review History of Problems with Anesthesia: No NPO: Yes ASA Class: III Final Preanesthetic Review: No Changes in Pt Med Stat, Meds/Allgs Chart Reviewed, Consent Obtained/Reviewed and Anes Risks/Benef Reviewed Patient Risk: Low Procedure Risk: Low Anesthetic Plan Anesthetic Plan: MAC: and Agree w/ Assess. and Plan Disposition: Standard PACU
[2023-07-11 09:00] VITALS: BP 94/44; PULSE 98; RESP 23; TEMP 36.2; O2SAT 96
--- NOTE | 2023-07-11 09:09 | P.HPSUR_ITS ---
Pre-Procedural Eval Section A Date of Service: 07/11/23 Section B Chief Complaint: screening,gerd, Details of Present Illness: see H&P no changes Relevant Family History (Specify if Yes): No Relevant Social History: None Present Medications: see Short Stay [facility] assessment Medical History: No relevant PMH Allergies: Allergies Allergy/AdvReac Type Severity Reaction Status Date / Time adhesive tape [ADHESIVE TAPE] Allergy Unknown RASH Verified 07/06/23 13:29 bupropion [From WELLBUTRIN] Allergy Unknown HIVES Verified 07/06/23 13:29 carbamazepine [From TEGRETOL] Allergy Unknown HIVES Verified 07/06/23 13:29 latex [LATEX] Allergy Unknown RASH Verified 07/06/23 13:29 levofloxacin [Levaquin] Allergy Unknown confusion Verified 07/06/23 13:29 as per patient, hallucinations terbinafine [From Lamisil] AdvReac Intermediate Dizziness Verified 07/06/23 13:29 Review of Systems Sugical H&P ROS: Negative: Constitution, Cardiovascular, Respiratory, Neurological, Psychiatric, Hem-Onc, Allergic/Immunologic, Gastrointestinal, Heather tourinary, Musculoskeletal, Integumentary, Endocrine and Eyes/Ears/Nose/Throat Exam Surgical H&P Exam: Normal: HEENT, Normal: Heart, Normal: Lungs, Normal: Extremities, Normal: Abdomen, Normal: Skin and Normal: Neurological Plan Diagnosis/Plan: Unchanged I have reviewed the history and physical and performed a pertinent physical examination on my patient. No changes have occurred unless specified. Time Spent With Patient Time: Total time managing care of this patient today ____ minutes.
[2023-07-11 09:15] VITALS: BP 109/67; PULSE 83; RESP 18; TEMP 37.1; O2SAT 97
--- NOTE | 2023-07-11 09:38 | OP_ITS ---
DATE OF SERVICE: 07/11/2023 SURGEON: Radames Wright MD INDICATIONS: 1. Gastroesophageal reflux disease. 2. Colon cancer screening. PREOPERATIVE DIAGNOSIS: POSTOPERATIVE DIAGNOSIS: PROCEDURE PERFORMED: Upper endoscopy with biopsy, colonoscopy to the cecum with biopsy. ESTIMATED BLOOD LOSS: COMPLICATIONS: ANESTHESIA: Monitored anesthesia care. ASSISTANTS: SPECIMENS: DESCRIPTION OF PROCEDURE: History and physical performed. The risks and benefits of procedure explained to the patient. Informed consent was obtained. The patient was placed in left lateral decubitus position. The Olympus video gastroscope was introduced into the esophagus, stomach, and duodenum. Examination was performed. The scope was removed, he was repositioned for colonoscopy. A digital rectal exam was performed and was found to be normal. The Olympus pediatric video colonoscope was introduced into the rectum and advanced to the cecum. The cecum was identified by transillumination, palpation, and identification of ileocecal valve. Examination was performed. The scope was removed. He tolerated both procedures well, was returned to the recovery area in stable condition. FINDINGS: Upper endoscopy: 1. Esophagus: The esophagus was normal. The EG junction was biopsied. 2. Stomach: The stomach showed no evidence of masses, ulcers, or polyps. Antral biopsies were obtained. 3. Duodenum: The bulb and 2nd portion were normal. Colonoscopy: The terminal ileum was normal. The visualized colonic mucosa was within normal limits without evidence of masses or ulcers. Two polyps were identified and removed with biopsy forceps, both measured less than 5 mm. These were located at 45 cm and in the rectum. Retroflexed examination was normal. The quality of prep was good. IMPRESSION: 1. Gastroesophageal reflux disease. 2. Colon polyps. RECOMMENDATION: Follow up the biopsy results. MD FABIO Domínguez/ELENI / [id number]
== END 2023-07-11 09:35 | disposition home or self-care (01) ==
PROVIDERS: PCP Internal Medicine; Visit Provider Internal Medicine Gastroenterology
PROC: (CPT 45380; principal; 2023-07-11 08:20)
DX: Z12.11 Encounter for screening for malignant neoplasm of colon (principal); D12.5 Benign neoplasm of sigmoid colon; K62.1 Rectal polyp; Z80.0 Family history of malignant neoplasm of digestive organs; K21.9 Gastro-esophageal reflux disease without esophagitis; I10 Essential (primary) hypertension; J45.909 Unspecified asthma, uncomplicated; E55.9 Vitamin D deficiency, unspecified; F31.9 Bipolar disorder, unspecified; M54.30 Sciatica, unspecified side; Z79.899 Other long term (current) drug therapy; Z79.51 Long term (current) use of inhaled steroids; Z98.890 Other specified postprocedural states; Z91.040 Latex allergy status; Z88.1 Allergy status to other antibiotic agents; Z88.8 Allergy status to other drugs, medicaments and biological substances
CPT/HCPCS: 45380; 43239; 88305; 88342; J2371; J2704

== ENCOUNTER 2023-08-03 09:50 | Outpatient (REF) | payer MEDICARE, MEDICAID, SELFPAY ==
[2023-08-03 13:35] LABS: MANUAL DIFF FLAG NO
[2023-08-03 13:42] LABS: Basophils Absolute Auto 0.1 X10*3/uL (0.0-0.2); Basophils Percent Auto 1.1 % (0-2); Eosinophils Absolute Auto 0.1 X10*3/uL (0.0-0.4); Eosinophils Percent Auto 1.5 % (0-4); Hematocrit 42.3 % (42.0-52.0); Hemoglobin 14.4 g/dl (14.0-18.0); Imm Gran Abs Auto 0.04 X10*3/uL (0.00-0.03); Imm Gran Pct Auto 0.7 % (0.0-0.4); Lymphocytes Absolute Auto 1.1 X10*3/uL (1.2-4.9); Lymphocytes Percent Auto 20.5 % (20-40); Mean Corpuscular Hemoglobin 32.9 pg (27.0-33.0); Mean Corpuscular Volume 96.6 fL (80.0-98.0); Mean Platelet Volume 10.9 fL (9.4-12.4); Monocytes Absolute Auto 0.5 X10*3/uL (0.1-1.2); Neutrophils Absolute Auto 3.7 x10*3/uL (2.0-8.3); Neutrophils Percent Auto 67.2 % (45-73); Platelet Count 265 X10*3/uL (160-400); Red Blood Count 4.38 X10*6/uL (4.60-5.80); Red Cell Distribution Width 12.1 % (11.0-16.0); White Blood Count 5.5 X10*3/uL (4.8-10.8)
[2023-08-03 14:12] LABS: Estimated Average Glucose 103 mg/dL; Hemoglobin A1c % 5.2 % (<6.0)
[2023-08-03 14:24] LABS: Alanine Aminotransferase 22 U/L (0-40); Albumin Level 4.6 g/dL (3.5-5.0); Alkaline Phosphatase 44 U/L (39-117); Anion Gap 10 (12-20); Aspartate Amino Transferase 20 U/L (5-37); Bilirubin Total 0.6 mg/dL (0.0-1.0); Blood Urea Nitrogen 19 mg/dL (9-16); Calcium 9.7 mg/dL (8.4-10.2); Carbon Dioxide 29 mmol/L (22-29); Chloride 103 mmol/L (96-108); Cholesterol 174 mg/dL (<200); Estimated Glomerular Filt Rate > 60; Free T4 (Free Thyroxine) 0.86 ng/dL (0.71-1.85); Glucose Random 93 mg/dL (60-115); HDL Cholesterol 50 mg/dL (>40); LDL Cholesterol Calculated 107 mg/dL (<100); Potassium 3.9 mmol/L (3.3-5.1); Sodium 138 mmol/L (135-145); Thyroid Stimulating Hormone 0.88 uIU/mL (0.32-4.0); Total Protein 7.4 g/dL (6.5-8.0); Triglycerides 89 mg/dL (<150)
[2023-08-03 16:28] LABS: Vitamin B12 313 pg/mL (200-900)
== END 2023-08-03 09:51 | disposition home or self-care (01) ==
LOC: HO.HMGCLDS 09:50
PROVIDERS: PCP Internal Medicine; Visit Provider Internal Medicine
DX: I10 Essential (primary) hypertension (principal); E78.00 Pure hypercholesterolemia, unspecified
CPT/HCPCS: 36415; 80053; 80061; 82607; 82746; 83036; 83735; 84439; 84443; 85025

== ENCOUNTER 2023-12-12 09:56 | Outpatient (AMB) | payer MEDICARE, MEDICAID, SELFPAY ==
--- NOTE | 2023-12-12 09:57 | A.OFFVIS_ITS ---
Vital Signs 12/12/23 09:58 Height 6 ft 1 in Weight 226 lb 3.108 oz BMI 29.8 BP 150/80 H Blood Pressure Location Rt brachial Position Sitting Pulse 75 Intake Visit Reasons: 1 yr f/up w/ echo Tobacco Prevention Health Educator Required: No Accompanied by: Self / Same As Patient Allergies adhesive tape [ADHESIVE TAPE] Allergy (Unknown, Verified 07/06/23 13:29) RASH bupropion [From WELLBUTRIN] Allergy (Unknown, Verified 07/06/23 13:29) HIVES carbamazepine [From TEGRETOL] Allergy (Unknown, Verified 07/06/23 13:29) HIVES latex [LATEX] Allergy (Unknown, Verified 07/06/23 13:29) RASH levofloxacin [Levaquin] Allergy (Unknown, Verified 07/06/23 13:29) confusion as per patient, hallucinations terbinafine [From Lamisil] Adverse Reaction (Intermediate, Verified 07/06/23 13:29) Dizziness Medication List - Last Reconciled 12/12/23 by David Vanegas MD albuterol sulfate 90 mcg/actuation 2 puffs inhalation Q4-6H PRN benztropine 0.5 mg PO BID cholecalciferol (vitamin D3) 25 mcg PO DAILY clonidine HCl 0.1 mg PO BEDTIME fluticasone propionate 220 mcg/actuation (Flovent HFA) 2 puffs inhalation BID fluticasone propionate 50 mcg/actuation 2 sprays intranasal DAILY fluvoxamine 50 mg PO BID hydrochlorothiazide 12.5 mg PO QAM lamotrigine (Lamictal) 100 mg PO DAILY lisinopril 40 mg PO QAM loratadine 10 mg PO QAM multivitamin with minerals 1 cap PO DAILY omeprazole 20 mg PO DAILY 90 days risperidone (Risperdal) 2 mg PO DAILY HPI Comments Details: Guerrero is here for follow-up regarding coarctation of aorta. Overall, he states that he is doing well. No specific cardiac complaints. Blood pressure goes up any comes here but he states home blood pressures only the 120s. He checks some twice a week or so. [facility] Medical History Screening for colon cancer Lumbar radiculopathy, acute Sciatica Overweight (BMI 25.0-29.9) Essential hypertension Mental and behavioral problem Coarctation of aorta Vitamin D deficiency Asthma Bipolar disorder Hypertension Surgical History History of skin cancer H/O basal cell carcinoma excision History of incision and drainage History of angioplasty Family History Father Stomach cancer Bladder cancer Hypertension Mother Hypertension COPD (chronic obstructive pulmonary disease) Heart disease Sleep apnea Mental problem Maternal Uncle Skin cancer Maternal Grandfather Heart disease Social History Housing: Assisted Living Facility (shared living) Alcohol intake: never Patient Tobacco Use Status: Never used Tobacco e-Cigarette/Vaping Use: Never Used Second Hand Smoke Exposure: No service: No Current occupational status: employed Current occupation: [employer] Cognitive needs: No Hearing needs: No Vision needs: Yes (Glasses) Review of Systems Const Denies chills, Denies fatigue, Denies fever(s), Denies frequent falls, Denies weakness, Denies weight gain and Denies weight loss ENT Denies dizziness Card Denies chest pain, Denies leg edema, Denies lightheadedness, Denies palpitations, Denies dyspnea and Denies dyspnea on exertion Resp Denies cough, Denies dyspnea and Denies dyspnea on exertion GI Denies hematochezia Musc Denies abnormal gait, Denies muscle weakness, Denies numbness, Denies radiating pain into limb and Denies tingling Neuro Denies abnormal gait, Denies dizziness, Denies frequent falls, Denies numbness, Denies tingling and Denies weakness Endo Denies fatigue and Denies palpitations Physical Exam Vital Signs: Last Vital Signs Pulse 75 12/12/23 09:58 BP 150/80 H 12/12/23 09:58 BMI result Body Mass Index 29.8 Const General: comfortable and no acute distress Orientation/consciousness: patient oriented x3 HEENT Other: Unremarkable Head: Yes normal to inspection Neck Neck: Yes normal visual inspection Chest Chest palpation & inspection: normal inspection of the chest Resp Auscultation: clear to auscultation bilaterally Cardio Palpation: normal PMI Heart sounds: S1 normal heart sound present, S2 normal heart sound present, no gallops, no murmurs and no rubs GI Palpation (GI): Soft to palpation Back/Spine/Pelvis Other: unremarkable Skin General skin exam: no rashes or lesions noted Neuro General: patient oriented x3 Extrem General: Yes normal to inspection Psych Mental Status: mental status grossly normal Office Procedures EKG Details: EKG with sinus rhythm at 75/Min; rightward axis; right atrial enlargement; no significant ST-T changes; [place] [id number], Complete Assessment & Plan Assessment & Plan (1) Coarctation of aorta: Comment: Discrete side of coarctation be on left subclavian origin, treated by balloon angioplasty in 1991. Code(s): Q25.1 - Coarctation of aorta Category: Medical Plan: In the last echocardiogram, LVEF 50-55%. Peak gradient across the proximal descending thoracic aorta, 21 mm Hg. In the MRA, stable appearance of descending thoracic aorta status post repair. No interval dilatation or stenosis. We can recheck before next visit. To repeat echocardiogram. MRI chest to be done at [facility]. (2) Essential hypertension: Code(s): I10 - Essential (primary) hypertension Category: Medical Plan: White coat effect. Home blood pressures are normal range. On lisinopril, hydrochlorothiazide, clonidine. Orders: Orders CA echo transthoracic complete 6 Months Q25.1 - Coarctation of aorta Coding Level of Care Code Est Pt Level 4 (40810) Diagnoses Coarctation of aorta Q25.1 Essential hypertension I10 CPT Codes EKG - CPT: 89712-[id number], Complete ([id number])
[2023-12-12 09:58] VITALS: BP 150/80; PULSE 75; BMI 29.8
== END 2023-12-12 10:19 | disposition home or self-care (01) ==
PROVIDERS: Visit Provider Internal Medicine
DX: Q25.1 Coarctation of aorta (principal); I10 Essential (primary) hypertension
CPT/HCPCS: 93010; 99214

== ENCOUNTER → 2023-12-12 09:56 | Outpatient (BNVA) | payer MEDICARE, MEDICAID, SELFPAY | PROVIDERS: Visit Provider Internal Medicine | DX: I10 Essential (primary) hypertension (principal); Q25.1 Coarctation of aorta; Z79.899 Other long term (current) drug therapy | CPT/HCPCS: 93005; 99212 ==

== ENCOUNTER 2023-12-28 10:11 | Outpatient (AMB) | payer MEDICARE, MEDICAID, SELFPAY ==
--- NOTE | 2023-12-28 10:13 | MHC.PC.OV ---
Vital Signs 12/28/23 10:14 12/28/23 10:50 Height 6 ft 1 in Weight 223 lb BMI 29.4 BP 162/90 H 142/80 H Blood Pressure Location Lt brachial Lt brachial Position Sitting Sitting Pulse 102 H Pulse Source Pulse Oximeter Pulse Oximetry (%) 98 Oxygen Delivery Method Room Air Intake Visit Reasons: Annual Exam & HTN Allergies adhesive tape [ADHESIVE TAPE] Allergy (Unknown, Verified 12/28/23 10:14) RASH bupropion [From WELLBUTRIN] Allergy (Unknown, Verified 12/28/23 10:14) HIVES carbamazepine [From TEGRETOL] Allergy (Unknown, Verified 12/28/23 10:14) HIVES latex [LATEX] Allergy (Unknown, Verified 12/28/23 10:14) RASH levofloxacin [Levaquin] Allergy (Unknown, Verified 12/28/23 10:14) confusion as per patient, hallucinations terbinafine [From Lamisil] Adverse Reaction (Intermediate, Verified 12/28/23 10:14) Dizziness Medication List - Last Reconciled 12/28/23 by Nadya Piper MD albuterol sulfate 90 mcg/actuation 2 puffs inhalation Q4-6H PRN benztropine 0.5 mg PO BID cholecalciferol (vitamin D3) 25 mcg PO DAILY clonidine HCl 0.1 mg PO BEDTIME fluticasone propionate 220 mcg/actuation (Flovent HFA) 2 puffs inhalation BID fluticasone propionate 50 mcg/actuation 2 sprays intranasal DAILY fluvoxamine 50 mg PO BID hydrochlorothiazide 12.5 mg PO QAM lamotrigine (Lamictal) 100 mg PO DAILY lisinopril 40 mg PO QAM loratadine 10 mg PO QAM multivitamin with minerals 1 cap PO DAILY omeprazole 20 mg PO DAILY 90 days risperidone (Risperdal) 2 mg PO DAILY Tobacco use date assessed: 12/28/23 Dental Screening Dental Screen Date: 12/28/23 Did you have a dental visit in the last 12 months?: Yes Did you have a dental problem in the last 6 months where you did not have access to dental care?: No Was dental information given to patient?: Patient has dentist HPI Annual Exam & HTN HPI Details 48-year-old overweight male with a history of bipolar disorder asthma history of coarctation of the aorta(status post repair) GERD hypertension impaired glucose tolerance last seen in June 2023 patient is here for physical exam. Patient is up-to-date with colonoscopy July 2023 tubular adenoma. Cardiology notes appreciated December 2023 echocardiogram at home blood pressure was told to be good patient has had balloon angioplasty in 1991. Echocardiogram EF 50-55. [facility] Medical History (Updated 12/28/23 @ 10:48 by Nadya Piper MD) Screening for colon cancer Lumbar radiculopathy, acute Sciatica Overweight (BMI 25.0-29.9) Essential hypertension Mental and behavioral problem Coarctation of aorta Vitamin D deficiency Asthma Bipolar disorder Hypertension Surgical History History of skin cancer H/O basal cell carcinoma excision History of incision and drainage History of angioplasty Family History Father Stomach cancer Bladder cancer Hypertension Mother Hypertension COPD (chronic obstructive pulmonary disease) Heart disease Sleep apnea Mental problem Maternal Uncle Skin cancer Maternal Grandfather Heart disease Social History Housing: Assisted Living Facility (shared living) Alcohol intake: never Patient Tobacco Use Status: Never used Tobacco e-Cigarette/Vaping Use: Never Used Second Hand Smoke Exposure: No service: No Current occupational status: employed Current occupation: [employer] Cognitive needs: No Hearing needs: No Vision needs: Yes (Glasses) Questionnaire PHQ-9 Over the last 2 weeks, how often have you been bothered by any of the following problems? 1. Little interest or pleasure in doing things: not at all 2. Feeling down, depressed, or hopeless: not at all 3. Trouble falling or staying asleep, or sleeping too much: not at all 4. Feeling tired or having little energy: not at all 5. Poor appetite or overeating: not at all 6. Feeling bad about yourself - or that you are a failure or have let yourself or your family down: not at all 7. Trouble concentrating on things, such as reading the newspaper or watching television: not at all 8. Moving or speaking so slowly that other people could have noticed. Or the opposite - being so fidgety or restless that you have been moving around a lot more than usual: not at all 9. Thoughts that you would be better off or of hurting yourself in some way: not at all Total score: 0 Depression Screening Interpretation: Negative Depression Screening Done: Yes 82065 - PHQ-9 Billing: Yes Source: Developed by Drs. Ranulfo Noriega, Rema James, Galdino Krueger and colleagues, with an educational imer from [employer]. Thrive Questionnaire Date Thrive assessed: 12/28/23 I am a: Parent/Caregiver What is your living situation today?: I have a steady place to live Within the past 12 months, did the food you bought not last and you didn't have the money to get more?: Never true Within the past 12 months, did you worry whether your food would run out before you got money to buy more?: Never true Do you have trouble paying for medicines?: No Do you have trouble getting transportation to medical appointments?: No Do you have trouble paying your heating and electricity bill?: No Do you have trouble taking care of your child, family member or friend?: No Do you have trouble with day-to-day activities such as bathing, preparing meals, shopping, managing finances, etc.?: No Are you currently unemployed and looking for a job?: No Are you interested in more education?: No Currently or been in a relationship where the following occur: no concerns reported THRIVE Score: 0 AUDIT C Alcohol Use Questionnaire (AUDIT-C) 1. How often do you have a drink containing alcohol?: Never 3. How often do you have six or more drinks on one occasion?: Never Total Score: 0 Score Reviewed/Action Taken: No TONY-7 AMB Questionnaire TONY-7 Date TONY - 7 assessed: 12/28/23 Feeling nervous, anxious, or on edge: 0 = Not at all Not being able to stop or control worryin = Not at all Worrying too much about different things: 0 = Not at all Trouble relaxin = Not at all Being so restless that it is hard to sit still: 0 = Not at all Becoming easily annoyed or irritable: 0 = Not at all Feeling afraid as if something awful might happen: 0 = Not at all Total TONY-7 score (0-4 normal; 5-9 mild; 10-14 moderate; 15-21 severe): 0 Source: Developed by Drs. Ranulfo Noriega, Rema James, Galdino Krueger and colleagues, with an educational imer from [employer]. Review of Systems Const Denies poor appetite and Denies weakness Eyes Denies no additional complaints ENT Reports Normal hearing present, Denies dizziness, Denies nasal congestion, Denies tinnitus and Denies sore throat Card Denies chest pain, Denies syncope, Denies rapid heart rate and Denies dyspnea Resp Denies cough and Denies dyspnea GI Denies change in stool character, Reports constipation, Denies diarrhea, Denies nausea and Denies vomiting Denies dysuria and Denies urinary frequency Neuro Reports Normal hearing present, Denies confusion, Denies dizziness, Denies syncope and Denies weakness Psych Denies confusion Physical exam (Primary Care) Vital Signs: Last Vital Signs Pulse 102 H 12/28/23 10:14 BP 162/90 H 12/28/23 10:14 Pulse Ox 98 12/28/23 10:14 Oxygen Delivery Method Room Air 12/28/23 10:14 BMI result Body Mass Index 29.4 Tobacco/Smoking Status: Tobacco use Status Tobacco use date assessed 12/28/23 12/28/23 10:15 Patient Tobacco Use Status Never used Tobacco 12/28/23 10:15 e-Cigarette/Vaping Use Never Used 12/28/23 10:15 PHQ-9: PHQ-9 Score PHQ-9: Total score 0 12/28/23 10:23 Depression Screening Interpretation: Negative Thrive Assessment: Date of Thrive Assessment Date Thrive assessed 12/28/23 12/28/23 10:15 Currently or been in a relationship where the following occur: no concerns reported Const General: No confusion Orientation/consciousness: No confusion HENMT Head: Yes normocephalic Ears: external ears normal and TM's normal bilaterally Face and sinus: Yes normal facial exam Mouth: moist mucous membranes Throat: Yes tonsils normal Eyes Conjunctivae: conjunctivae normal Pupils: Equal, round and reactive pupils present and Pupil accommodation reflex normal Direct Ophthalmoscopy: normal light reflex Neck Neck: No lymphadenopathy Thyroid: Thyroid normal Chest Chest palpation & inspection: normal inspection of the chest Resp Effort & Inspection: normal respiratory effort and no audible wheezes Auscultation: clear to auscultation bilaterally, no crackles, no wheezes and lung sounds not diminished Cardio Rate: regular rate Rhythm: regular rhythm Peripheral pulses: radial pulses present and dorsalis pedis present GI Palpation (GI): no masses Auscultation: normal bowel sounds and normoactive bowel sounds Rectal Exam - Male: Yes deferred Skin General skin exam: no rashes or lesions noted Rashes: no rashes Neuro General: No confusion Cranial nerves: Yes Equal, round and reactive pupils present and Yes Normal hearing present Cognition (Neuro): normal cognition Gait exam (Neuro): Normal gait present Motor exam (neuro): 5/5 motor strength present throughout Deep tendon reflexes (DTR's): Right brachioradialis reflex intensity grade: 2+, Left brachioradialis reflex intensity grade: 2+, Right patellar reflex intensity grade: 2+ and Left patellar reflex intensity grade: 2+ Extrem General: No edema Assessment and Plan Assessment & Plan (1) Annual physical exam: Code(s): Z00.00 - Encounter for general adult medical examination without abnormal findings (2) Coarctation of aorta: Comment: Discrete side of coarctation be on left subclavian origin, treated by balloon angioplasty in 1991. Code(s): Q25.1 - Coarctation of aorta Plan: Patient is being followed up by Cardiology yearly. (3) Essential hypertension: Code(s): I10 - Essential (primary) hypertension Plan: Continue with blood pressure medication. Decrease salt intake and exercise patient does have white coat hypertension and continues to monitor blood pressure. On clonidine 0.1 mg at bedtime hydrochlorothiazide 12.5 mg once a day lisinopril 40 mg once a day last blood work was in July 2023 (4) Asthma: Code(s): J45.909 - Unspecified asthma, uncomplicated Qualifiers: Asthma severity: mild Asthma persistence: intermittent Asthma complication type: uncomplicated Qualified Code(s): J45.20 - Mild intermittent asthma, uncomplicated Plan: Continue with the inhaler and Flovent (5) Overweight (BMI 25.0-29.9): Code(s): E66.3 - Overweight Plan: Diet and exercise (6) GERD (gastroesophageal reflux disease): Code(s): K21.9 - Gastro-esophageal reflux disease without esophagitis Qualifiers: Esophagitis presence: without esophagitis Qualified Code(s): K21.9 - Gastro-esophageal reflux disease without esophagitis Plan: Avoid the foods that causes that usually spicy foods, tomato products, juices, coffee, soda and foods that your sensitive to. After eating do not lie down, allow 3-4 hours before in lie down. And keep the head of bed above 30 degrees to avoid the acid from going up. (7) Bipolar disorder: Comment: Dr. Wills Code(s): F31.9 - Bipolar disorder, unspecified Qualifiers: Active/Remission status: currently active Current bipolar episode type: manic Current episode severity: mild Qualified Code(s): F31.11 - Bipolar disorder, current episode manic without psychotic features, mild Plan: Continue to follow-up with psychiatry Orders: Orders Complete Blood Count Auto Diff 6 Months I10 - Essential (primary) hypertension Free T4 (Free Thyroxine) 6 Months I10 - Essential (primary) hypertension Comprehensive Met. Panel 6 Months I10 - Essential (primary) hypertension Thyroid Stimulating Hormone 6 Months I10 - Essential (primary) hypertension Lipid Panel 6 Months E78.00 - Pure hypercholesterolemia, unspecified, I10 - Essential (primary) hypertension Vitamin B12 and Folate 6 Months I10 - Essential (primary) hypertension Coding Level of Care Code Est Pt Prev Care 40-64y(20151) Diagnoses Annual physical exam Z00.00 Coarctation of aorta Q25.1 Essential hypertension I10 Mild intermittent asthma without complication J45.20 Asthma severity: mild Asthma persistence: intermittent Asthma complication type: uncomplicated Overweight (BMI 25.0-29.9) E66.3 Gastroesophageal reflux disease without esophagitis K21.9 Esophagitis presence: without esophagitis Bipolar affective disorder, currently manic, mild F31.11 Active/Remission status: currently active Current bipolar episode type: manic Current episode severity: mild
[2023-12-28 10:14] VITALS: BP 162/90; PULSE 102; O2SAT 98; BMI 29.4
[2023-12-28 10:50] VITALS: BP 142/80
== END 2023-12-28 11:04 | disposition home or self-care (01) ==
PROVIDERS: PCP Internal Medicine; Visit Provider Internal Medicine
DX: Z00.00 Encounter for general adult medical examination without abnormal findings (principal); F31.11 Bipolar disorder, current episode manic without psychotic features, mild; Q25.1 Coarctation of aorta; I10 Essential (primary) hypertension; J45.20 Mild intermittent asthma, uncomplicated; E66.3 Overweight; K21.9 Gastro-esophageal reflux disease without esophagitis
CPT/HCPCS: 99396

== ENCOUNTER 2024-03-01 09:36 | Outpatient (AMB) | payer MEDICARE, MEDICAID, SELFPAY ==
--- NOTE | 2024-03-01 10:00 | AM.OFFWIN_ITS ---
Intake Vital Signs 03/01/24 10:04 Height 6 ft 1 in Weight 215 lb BMI 28.4 BP 138/80 Blood Pressure Location Lt brachial Position Sitting Pulse 99 Pulse Source Pulse Oximeter Temp 98.6 F Temp Source Oral Pulse Oximetry (%) 98 Oxygen Delivery Method Room Air Intake Visit Reasons: Rt middle finger cuticle infection Intake Note: pt is here c/o RT middle finger cuticle ? infection. Patient Tobacco Use Status: Never used Tobacco Allergies adhesive tape [ADHESIVE TAPE] Allergy (Unknown, Verified 03/01/24 10:01) RASH bupropion [From WELLBUTRIN] Allergy (Unknown, Verified 03/01/24 10:01) HIVES carbamazepine [From TEGRETOL] Allergy (Unknown, Verified 03/01/24 10:01) HIVES latex [LATEX] Allergy (Unknown, Verified 03/01/24 10:01) RASH levofloxacin [Levaquin] Allergy (Unknown, Verified 03/01/24 10:01) confusion as per patient, hallucinations terbinafine [From Lamisil] Adverse Reaction (Intermediate, Verified 03/01/24 10:01) Dizziness Medication List - Last Reconciled 03/01/24 by Romelia Finch NP cholecalciferol (vitamin D3) 25 mcg PO DAILY fluvoxamine 100 mg PO BEDTIME hydrochlorothiazide 12.5 mg PO QAM lisinopril 40 mg PO QAM loratadine 10 mg PO QAM [id number] sulfate 4.5 mg iron (One Daily Multivitamins with Minerals) tabs PO multivitamin with minerals 1 cap PO DAILY omeprazole 20 mg PO DAILY 90 days Do you need a note to return to daycare/school/sports/work: No HPI Rt middle finger cuticle infection HPI Details This note is constructed using voice recognition software. While every effort has been made to ensure accuracy, infrastructure analyst errors may have been included. The patient is a 48 year old male who presents to the clinic today with right 3rd finger cuticle infection for the past 2 days. Notes that he has had this in the past and has been treated with antibiotics. 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 He has not had any discharge or any lesions that he has noted. No fever, chills. He notes that there is not any streaking, and denies pain throughout the hand or any difficulty with strength.. [facility] Medical History (Updated 12/28/23 @ 10:48 by Nadya Piper MD) Screening for colon cancer Lumbar radiculopathy, acute Sciatica Overweight (BMI 25.0-29.9) Essential hypertension Mental and behavioral problem Coarctation of aorta Vitamin D deficiency Asthma Bipolar disorder Hypertension Surgical History History of skin cancer H/O basal cell carcinoma excision History of incision and drainage History of angioplasty Family History Father Stomach cancer Bladder cancer Hypertension Mother Hypertension COPD (chronic obstructive pulmonary disease) Heart disease Sleep apnea Mental problem Maternal Uncle Skin cancer Maternal Grandfather Heart disease Social History Housing: Assisted Living Facility (shared living) Alcohol intake: never Patient Tobacco Use Status: Never used Tobacco e-Cigarette/Vaping Use: Never Used Second Hand Smoke Exposure: No service: No Current occupational status: employed Current occupation: [employer] Cognitive needs: No Hearing needs: No Vision needs: Yes (Glasses) Review of Systems Const All systems reviewed & are unremarkable except as noted in HPI and below Physical Exam Const General: cooperative, healthy appearing, comfortable, no acute distress and alert Orientation/consciousness: patient oriented x3 Limitations: no limitations Skin Other: Right middle finger paronychia to lateral aspect, no cystic structure, minimal erythema surrounding, no warmth. No discharge. General skin exam: no rashes or lesions noted, elasticity normal and turgor normal Neuro General: patient oriented x3 Extrem General: Yes normal to inspection, Yes full ROM, Yes capillary refill normal and Yes normal exam except as noted Psych Appearance: grossly normal Mental Status: mental status grossly normal Speech and movement: Normal speech and movement present Affect: normal affect Assessment & Plan Assessment & Plan (1) Paronychia of finger of right hand: Code(s): L03.011 - Cellulitis of right finger Plan: Mupirocin ordered for topical antibiotic. Advised Epsom salt soaks, washing and drying the area. Advised monitoring for streaking or other signs of infection including warmth and discharge. Advised follow up with PCP as needed. Plan See above for full details and plan. Medications: New mupirocin 2% 1 appl topical TID 7 days 1 ea 0RF Coding Level of Care Code Est Pt Level 3 (77613) Diagnoses Paronychia of finger of right hand L03.011
[2024-03-01 10:04] VITALS: BP 138/80; PULSE 99; TEMP 37; O2SAT 98; BMI 28.4
== END 2024-03-01 10:29 | disposition home or self-care (01) ==
PROVIDERS: PCP Internal Medicine; Visit Provider Registered Nurse
DX: L03.011 Cellulitis of right finger (principal)
CPT/HCPCS: 99213

== ENCOUNTER 2024-05-30 10:48 | Outpatient (REF) | payer MEDICARE, MEDICAID, SELFPAY ==
[2024-05-30 14:20] LABS: Anion Gap 12 (12-20); Blood Urea Nitrogen 20 mg/dL (9-16); Calcium 9.9 mg/dL (8.4-10.2); Carbon Dioxide 26 mmol/L (22-29); Chloride 106 mmol/L (96-108); Estimated Glomerular Filt Rate > 60; Glucose Random 89 mg/dL (60-115); Potassium 3.7 mmol/L (3.3-5.1); Sodium 140 mmol/L (135-145)
== END 2024-05-30 10:49 | disposition home or self-care (01) ==
LOC: HO.HMGCLDS 10:48
PROVIDERS: PCP Internal Medicine; Visit Provider Internal Medicine
DX: Q25.1 Coarctation of aorta (principal)
CPT/HCPCS: 36415; 80048

== ENCOUNTER → 2024-06-12 10:50 | Outpatient (REF) | payer MEDICARE, MEDICAID, SELFPAY ==
--- NOTE | 2024-06-12 10:53 | CA_ITS ---
Transthoracic Echocardiogram Patient (Last, First, Middle): Guerrero Rahman E Gender: Male Date of : 1975 Age: 48 Procedure Date: 06/12/2024 Procedure Type: Transthoracic Echocardiogram Location: OP Height: 185.42 cm Weight: 101.61 kg BSA: 2.26 m2 Heart Rate: bpm BP: 117 / 77 mmHg Runstitching Machine Operator: NITIN Referring MD: David Vanegas MD Immigration Judge: Dallin Goldsmith MD Symptoms: Q25.1 - Coarctation of aorta Study Quality: Adequate ECG Rhythm: Sinus Conclusions: - 1. Normal LV ejection fraction of 60 65% with grade 1 diastolic dysfunction 2. Trivial aortic regurgitation 3. Mildly dilated ascending aortic root 4. By gradient there is mild coarctation physiology noted in descending thoracic aorta 5. No gross pericardial effusion Findings Left Ventricle Normal left ventricular size, thickness, and systolic function. The visually estimated ejection fraction is between 60-65%. Spectral Doppler is indicative of an impaired relaxation filling pattern. E/E prime ratio is <8, consistent with normal filling pressures. Evidence suggests grade I (mild) diastolic dysfunction. Right Ventricle Normal right ventricular cavity size and systolic function. Atria Both atria are normal in size. Interatrial shunt cannot be excluded. Aortic Valve Normal aortic valve structure and function. There is no aortic valve stenosis. There is trace (trivial) aortic valve regurgitation. Mitral Valve Likely normal mitral valve structure and function. There is trace mitral valve regurgitation. There is no mitral valve stenosis. Pulmonic Valve The pulmonic valve is likely normal. Tricuspid Valve Normal tricuspid valve structure. There is trace tricuspid valve regurgitation. The right ventricular systolic pressure is normal. The right ventricular systolic pressure is 28 mmHg. Normal right atrial pressure. There is no evidence of pulmonary hypertension. Great Vessels The pulmonary artery was not well visualized. There is mild dilatation of the sinuses of Valsalva measuring 4.05 cm. The peak coarctation gradient is 26.00 mmHg. the transition between the arch and the descending thoracic aorta is not well visualized but appears to have some narrowing with increased gradient suggestive of mild coarctation. Consider thoracic aorticMRA Venous The inferior vena cava is normal in size and collapses greater than 50% with inspiration. Pericardium/Pleural There is no evidence of pericardial effusion. Prior Study Comparison No significant change compared to prior study dated: 09/29/2022. Measurements 2D Linear Measurements IVSd: 1.17 0.6-0.9/0.6-1.0 cm LVIDd: 4.34 3.9-5.3/4.2-5.9 cm LVIDd Index: 1.92 2.4-3.2/2.2-3.1 cm/m2 LVIDs: 2.70 2.0-3.6 cm LVPWd: 0.98 0.7-1.1 cm LA Diam: 3.20 2.7-3.8/3.0-4.0 cm LAIDs Index: 1.42 1.5-2.3 cm/m2 LV Mass: 199.67 67-162/88-224 g LV Mass Index: 88.35 43-95/49-115 g/m2 LVOT Diam: 2.50 3.0+(-)1.3 cm 2D Systolic Function EF 4C: 64.20 >55% EF 2C: 54.50 >55% EF BiP: 60.10 >55% Mitral Valve MV Pk E: 0.57 MV PK A: 0.75 MV Decel Time: 223.00 E/A: 0.80 E'Lateral: 10.30 E'Medial: 9.68 E/E' Med: 5.90 E/E' Lat: 5.60 PHT: 65.00 MVA PHT: 3.38 Decel [place]: 2.58 Aortic Valve AoV Pk Mychal: 1.30 AoV Mn Mychal: 0.87 AoV VTI: 0.27 AoV Pk Grad: 7.00 Aov Mn Grad: 3.00 ISSAC Cont.VTI: 3.76 Coarct Pk Grad: 26.00 LVOT LVOT Pk Mychal: 1.06 LVOT Mn Mychal: 0.67 LVOT VTI: 0.20 LVOT Pk Grad: 4.00 LVOT Mn Grad: 2.00 LVOT Diam: 2.50 LVOT Area: 4.91 Diastolic Function MV Pk E: 0.57 MV Pk A: 0.75 E/A: 0.80 E'Medial: 9.68 E/E' Med: 5.90 E' Laterial: 10.30 E/E' Lat: 5.60 Right Ventricle TAPSE (mm): 32.10 TVS' Mychal: 15.70 Tricuspid Valve TR Pk Mychal: 2.23 TR Pk Grad: 20.00 RA Press: 8.00 RVSP: 28.00 Great Vessels Aorta Sinus of Valsalva: 4.05 2.0-3.[address] [place]: 2.84 1.7-3.4 cm Ao Asc: 3.00 2.1-3.4 cm Updated in Other Vendor System with Status of Final Dallin Goldsmith MD electronically signed on 06/13/2024 9:30:46 AM with status of Final
== END ==
LOC: HO.CARD 10:50
PROVIDERS: PCP Internal Medicine; Visit Provider Internal Medicine
DX: Q25.1 Coarctation of aorta (principal)
CPT/HCPCS: 93306

== ENCOUNTER → 2024-06-12 10:53 | Outpatient (BNV) | payer MEDICARE, MEDICAID, SELFPAY | PROVIDERS: PCP Internal Medicine; Visit Provider Internal Medicine Cardiovascular Disease | DX: Q25.1 Coarctation of aorta (principal); I35.1 Nonrheumatic aortic (valve) insufficiency | CPT/HCPCS: 93303; 93320; 93325 ==

== ENCOUNTER 2024-06-18 09:57 | Outpatient (AMB) | payer MEDICARE, MEDICAID, SELFPAY ==
[2024-06-18 09:58] VITALS: BP 150/74; PULSE 100; BMI 30.4
--- NOTE | 2024-06-18 09:58 | A.OFFVIS_ITS ---
Vital Signs 06/18/24 09:58 Height 6 ft 1 in Weight 230 lb 2.601 oz BMI 30.4 BP 150/74 H Blood Pressure Location Lt brachial Position Sitting Pulse 100 Pulse Source Pulse Oximeter Intake Visit Reasons: 6 mth f/up echo/ MRI at [facility] Plant Production Manager Required: No Embossing Machine Operator Helper: Embossing Machine Operator Helper Present Accompanied by: Other Relationship Allergies adhesive tape [ADHESIVE TAPE] Allergy (Unknown, Verified 03/01/24 10:01) RASH bupropion [From WELLBUTRIN] Allergy (Unknown, Verified 03/01/24 10:01) HIVES carbamazepine [From TEGRETOL] Allergy (Unknown, Verified 03/01/24 10:01) HIVES latex [LATEX] Allergy (Unknown, Verified 03/01/24 10:01) RASH levofloxacin [Levaquin] Allergy (Unknown, Verified 03/01/24 10:01) confusion as per patient, hallucinations terbinafine [From Lamisil] Adverse Reaction (Intermediate, Verified 03/01/24 10:01) Dizziness Medication List - Last Reconciled 06/18/24 by David Vanegas MD cholecalciferol (vitamin D3) 25 mcg PO DAILY fluvoxamine 100 mg PO BEDTIME hydrochlorothiazide 12.5 mg PO QAM lamotrigine (Lamictal) 100 mg PO DAILY lisinopril 40 mg PO QAM loratadine 10 mg PO QAM qlpnaqrc-oxz-hacysii sulfate 4.5 mg iron (One Daily Multivitamins with Minerals) 1 tab PO DAILY multivitamin with minerals 1 cap PO DAILY omeprazole 20 mg PO DAILY 90 days risperidone (Risperdal) 3 mg PO DAILY HPI Comments Details: Guerrero is here for follow-up regarding coarctation of aorta. Overall, he states that he is doing well. No specific cardiac complaints. Blood pressure goes up any comes here but he states home blood pressures only the 120s. [facility] Medical History (Updated 12/28/23 @ 10:48 by Nadya Piper MD) Screening for colon cancer Lumbar radiculopathy, acute Sciatica Overweight (BMI 25.0-29.9) Essential hypertension Mental and behavioral problem Coarctation of aorta Vitamin D deficiency Asthma Bipolar disorder Hypertension Surgical History History of skin cancer H/O basal cell carcinoma excision History of incision and drainage History of angioplasty Family History Father Stomach cancer Bladder cancer Hypertension Mother Hypertension COPD (chronic obstructive pulmonary disease) Heart disease Sleep apnea Mental problem Maternal Uncle Skin cancer Maternal Grandfather Heart disease Social History Housing: Assisted Living Facility (shared living) Alcohol intake: never Patient Tobacco Use Status: Never used Tobacco e-Cigarette/Vaping Use: Never Used Second Hand Smoke Exposure: No service: No Current occupational status: employed Current occupation: [employer] Cognitive needs: No Hearing needs: No Vision needs: Yes (Glasses) Review of Systems Const Denies chills, Denies fatigue, Denies fever(s), Denies weight gain and Denies weight loss ENT Denies dizziness Card Denies chest pain, Denies leg edema, Denies lightheadedness, Denies palpitations, Denies dyspnea on exertion, Denies orthopnea and Denies other Resp Denies cough and Denies dyspnea on exertion GI Denies hematochezia and Denies change in stool character Musc Denies abnormal gait, Denies muscle weakness, Denies numbness, Denies radiating pain into limb and Denies tingling Neuro Denies abnormal gait, Denies dizziness, Denies numbness and Denies tingling Endo Denies fatigue and Denies palpitations Physical Exam Vital Signs: Last Vital Signs Pulse 100 06/18/24 09:58 BP 150/74 H 06/18/24 09:58 BMI result Body Mass Index 30.4 Const General: comfortable and no acute distress Orientation/consciousness: patient oriented x3 HEENT Other: Unremarkable Head: Yes normal to inspection Neck Neck: Yes normal visual inspection Chest Chest palpation & inspection: normal inspection of the chest Resp Auscultation: clear to auscultation bilaterally Cardio Palpation: normal PMI Heart sounds: S1 normal heart sound present, S2 normal heart sound present, no gallops, no murmurs and no rubs GI Palpation (GI): Soft to palpation Back/Spine/Pelvis Other: unremarkable Skin General skin exam: no rashes or lesions noted Neuro General: patient oriented x3 Extrem General: Yes normal to inspection Psych Mental Status: mental status grossly normal Assessment & Plan Assessment & Plan (1) Coarctation of aorta: Comment: Discrete side of coarctation be on left subclavian origin, treated by balloon angioplasty in 1991. Code(s): Q25.1 - Coarctation of aorta Category: Medical Plan: In the recent chest MRI, normal caliber ascending aorta. Luminal size at the site of angulation is 1.8 cm. Distal to it, 3.2 cm. Overall, thought to be stable. In the recent echocardiogram, LVEF 60-65%. Peak gradient across the coarctation is 26 mm Hg. Higher than before when it was 21 mm Hg. Even prior to that, 13 mm Hg. Overall, seems stable, but we can refer him to adult Congenital heart Disease for consultation as it has been so many years. (2) Essential hypertension: Code(s): I10 - Essential (primary) hypertension Category: Medical Plan: White coat effect. Home blood pressures are normal range. On lisinopril, hydrochlorothiazide. Not clear if he is still taking clonidine or not. Plan Appropriate form was filled. Orders: Referrals Cardiology Referral Q25.1 - Coarctation of aorta Coding Level of Care Code Est Pt Level 4 (94748) Diagnoses Coarctation of aorta Q25.1 Essential hypertension I10
== END 2024-06-18 10:20 | disposition home or self-care (01) ==
PROVIDERS: PCP Internal Medicine; Visit Provider Internal Medicine
DX: Q25.1 Coarctation of aorta (principal); I10 Essential (primary) hypertension
CPT/HCPCS: 99214

== ENCOUNTER → 2024-06-18 09:57 | Outpatient (BNVA) | payer MEDICARE, MEDICAID, SELFPAY | PROVIDERS: PCP Internal Medicine; Visit Provider Internal Medicine | DX: Q25.1 Coarctation of aorta (principal); I10 Essential (primary) hypertension | CPT/HCPCS: 99212 ==

== ENCOUNTER 2024-12-24 09:13 | Outpatient (AMB) | payer MEDICARE, MEDICAID, SELFPAY ==
--- NOTE | 2024-12-24 09:29 | A.OFFVIS_ITS ---
Vital Signs 12/24/24 09:30 Height 6 ft 1 in Weight 237 lb 3.478 oz BMI 31.3 BP 140/72 H Blood Pressure Location Lt brachial Position Sitting Pulse 77 Pulse Source Monitor Intake Visit Reasons: 6 mth /fup Barrel Driller Required: No Accompanied by: Self / Same As Patient Allergies adhesive tape [ADHESIVE TAPE] Allergy (Unknown, Verified 03/01/24 10:01) RASH bupropion [From WELLBUTRIN] Allergy (Unknown, Verified 03/01/24 10:01) HIVES carbamazepine [From TEGRETOL] Allergy (Unknown, Verified 03/01/24 10:01) HIVES latex [LATEX] Allergy (Unknown, Verified 03/01/24 10:01) RASH levofloxacin [Levaquin] Allergy (Unknown, Verified 03/01/24 10:01) confusion as per patient, hallucinations terbinafine [From Lamisil] Adverse Reaction (Intermediate, Verified 03/01/24 10:01) Dizziness Medication List - Last Reconciled 12/24/24 by David Vanegas MD cholecalciferol (vitamin D3) 25 mcg PO DAILY fluticasone propionate 50 mcg/actuation (Flonase Allergy Relief) 2 sprays intranasal DAILY fluvoxamine 100 mg PO BEDTIME hydrochlorothiazide 12.5 mg PO QAM lamotrigine (Lamictal) 100 mg PO DAILY lisinopril 40 mg PO QAM loratadine 10 mg PO QAM pmoaolez-hjg-jhimqcd sulfate 4.5 mg iron (One Daily Multivitamins with Minerals) 1 tab PO DAILY multivitamin with minerals 1 cap PO DAILY omeprazole 20 mg PO DAILY 90 days risperidone (Risperdal) 3 mg PO DAILY HPI Comments Details: Guerrero is here for follow-up regarding coarctation of aorta. He states that he is doing quite well. No cardiac symptoms. Blood pressure does go up in the clinic but he states that he always gets anxious coming here. Home blood pressures are much lower and only the 120s/70s. [facility] Medical History (Updated 12/24/24 @ 09:49 by David Vanegas MD) Screening for colon cancer Lumbar radiculopathy, acute Sciatica Overweight (BMI 25.0-29.9) Essential hypertension Mental and behavioral problem Coarctation of aorta Vitamin D deficiency Asthma Bipolar disorder Hypertension Surgical History History of skin cancer H/O basal cell carcinoma excision History of incision and drainage History of angioplasty Family History Father Stomach cancer Bladder cancer Hypertension Mother Hypertension COPD (chronic obstructive pulmonary disease) Heart disease Sleep apnea Mental problem Maternal Uncle Skin cancer Maternal Grandfather Heart disease Social History Housing: Assisted Living Facility (shared living) Alcohol intake: never Patient Tobacco Use Status: Never used Tobacco e-Cigarette/Vaping Use: Never Used Second Hand Smoke Exposure: No service: No Current occupational status: employed Current occupation: [employer] Cognitive needs: No Hearing needs: No Vision needs: Yes (Glasses) Review of Systems Const Denies chills, Denies fatigue, Denies fever(s), Denies frequent falls, Denies weakness, Denies weight gain and Denies weight loss ENT Denies dizziness Card Denies chest pain, Denies leg edema, Denies lightheadedness, Denies palpitations, Denies dyspnea and Denies dyspnea on exertion Resp Denies cough, Denies dyspnea and Denies dyspnea on exertion GI Denies hematochezia Musc Denies abnormal gait, Denies muscle weakness, Denies numbness, Denies radiating pain into limb and Denies tingling Neuro Denies abnormal gait, Denies dizziness, Denies frequent falls, Denies numbness, Denies tingling and Denies weakness Endo Denies fatigue and Denies palpitations Physical Exam Vital Signs: Last Vital Signs Pulse 77 12/24/24 09:30 BP 140/72 H 12/24/24 09:30 BMI result Body Mass Index 31.3 Const General: comfortable and no acute distress Orientation/consciousness: patient oriented x3 HEENT Other: Unremarkable Head: Yes normal to inspection Neck Neck: Yes normal visual inspection Chest Chest palpation & inspection: normal inspection of the chest Resp Auscultation: clear to auscultation bilaterally Cardio Palpation: normal PMI Heart sounds: S1 normal heart sound present, S2 normal heart sound present, no gallops, no murmurs and no rubs GI Palpation (GI): Soft to palpation Back/Spine/Pelvis Other: unremarkable Skin General skin exam: no rashes or lesions noted Neuro General: patient oriented x3 Extrem General: Yes normal to inspection Psych Mental Status: mental status grossly normal Office Procedures EKG Details: EKG with underlying sinus rhythm at 77/Min; sinus arrhythmias; no ischemic changes; rightward axis; top [place]. [address]-Rbzxolevdlxsaiyuu, Complete Assessment & Plan Assessment & Plan (1) Coarctation of aorta: Comment: Discrete side of coarctation be on left subclavian origin, treated by balloon angioplasty in 1991. Code(s): Q25.1 - Coarctation of aorta Category: Medical Plan: In the most recent chest MRI, normal caliber ascending aorta. Luminal size at the site of angulation is 1.8 cm. Distal to it, 3.2 cm. Overall, thought to be stable. In the recent [place] echocardiogram, LVEF 60-65%. Peak gradient across the coarctation is 26 mm Hg. Higher than before when it was 21 mm Hg. Even prior to that, 13 mm Hg. In the [facility] echocardiogram from this month, peak gradient in the descending thoracic aorta is 11 mm Hg, lower than above. Hence likely underestimation. He has been evaluated by Dr. Escalante at [facility]. Overall, nothing specific to do . He recommends follow up with him in 5 years or so. (2) Aortic root enlargement: Code(s): I77.89 - Other specified disorders of arteries and arterioles Category: Medical Plan: Aortic root measured 4.3 cm in the recent [facility] echocardiogram. In the [place] study, sinus of Valsalva measurement was 4.05 cm. We can follow this on echocardiogram. (3) Essential hypertension: Code(s): I10 - Essential (primary) hypertension Category: Medical Plan: White coat effect. Home blood pressures are normal range. On lisinopril, hydrochlorothiazide. Not clear if he is still taking clonidine or not. Plan Discussion Notes We discussed the stability of the patient's congenital cardiovascular condition and the recent consultation with specialist for the same. We reviewed the current approach to managing his blood pressure, agreeing that regular home monitoring suffices. The patient's anxiety was acknowledged as a factor influencing blood pressure, and we strategized that managing it through self- monitoring without medication adjustment is appropriate. An annual follow-up schedule is planned, with MRI evaluations set for every two years. The patient was informed of these plans and consented to proceed accordingly. Patient was informed and verbally consented to the use of an ambient scribe for clinic note documentation during this visit. Appropriate form was filled. Patient Instructions: - Continue monitoring your blood pressure at home twice a week. - You do not need any new medications or frequent EKGs at this time. - Follow the schedule for MRI imaging every two years. - Come in for annual follow-up visits to monitor your cardiovascular health. - Manage your anxiety as discussed to help keep your blood pressure stable. Coding Level of Care Code Est Pt Level 4 (80242) Complex EM visit Add On G2211 Diagnoses Coarctation of aorta Q25.1 Aortic root enlargement I77.89 Essential hypertension I10 CPT Codes EKG - CPT: 29601-Eglfxmisxqabllyps, Complete ([id number])
[2024-12-24 09:30] VITALS: BP 140/72; PULSE 77; BMI 31.3
--- OUTSIDE RECORDS SUMMARY | 2024-12-24 09:54 | XMS_ITS ---
Author Organization [facility] Address [address] [place] [id number] Care Team Providers Care Quality Nurse Name Role Phone Nadya Piper MD Primary Care Provider Radames Fuentse Jr Unavailable [phone] REASON FOR VISIT pathology Encounters Encounter Location Date Provider Diagnosis [facility] [address] [place] [phone] 07/13/2023 Radames Wright Jr Plan Of Treatment No Information Progress Notes * MONICA ESPINOZA EDOB:1975 (47 yo M)Acc No.[id number]:07/13/2023 Patient:?MONICA ESPINOZA :1975???Age:47 Y???Sex:Male Address:[address] [place] [id number] * true * Date:? Generated for Printi ng/Faaltheag/eTransmitting on:?12/24/2024 09:54 AM EDT
--- OUTSIDE RECORDS SUMMARY | 2024-12-24 09:54 | XMS_ITS | Patient Health Record ---
Author Organization [facility] Address [address] [place] [phone] Care Team Providers Care Chicken Raiser Name Role Phone Nadya Piper MD Primary Care Provider Radames Fuentes Jr Unavailable [phone] Allergies Allergen (clinical drug ingredient) Drug/Non Drug Allergy documented on EMR Reaction Allergy Type Onset Date Status Band-Aid Anti-Itch Unknown Drug Allergy Active Wellbutrin Unknown Drug Allergy Active carbamazepine TEGretol Unknown Drug Allergy Act ronald Levaquin Unknown Drug Allergy Active Latex Latex Unknown Allergy Active Reason For Referral No Information Medications Medication SIG (Take, Route, Frequency, Duration) Notes Start Date End Date Status Omeprazole 20 MG Oral for 28 A ctive Vitamin D3 25 MCG (1000 UT) Oral for 28 Active One-Daily Multi-Vit/Mineral - Oral for 28 Active cloNIDine HCl 0.1 MG Oral for 28 Active Lisinopril 40 MG Oral for 28 A ctive MiraLax (colon prep) 17 GM/SCOOP mixed with Gatorade or Crystal Light Orally begin at 5:00 p.m. the day before the procedure for 1 day 05/24/2023 Active Benztropine Mesylate 0.5 MG Oral for 28 Active lamoTRIgine 100 MG Oral for 28 Active risperiDONE 2 MG Oral for 28 A ctive Loratadine 10 MG Oral for 28 A ctive fluvoxaMINE Maleate 100 MG Oral for 28 Active hydroCHLOROthiazide 12.5 MG Oral for 28 Active Immunizations Vaccine Route Administration Date Status Comme nts Influenza Unknown 05/24/2022 Administered Social History Tobacco Use: Social History Observation Description Date Details (start date - stop date) Never Smoker NA - NA Tobacco Use/Smoking Question Answer Notes Patient is a nonsmoker Alcohol Screen Question Answer Notes Did you have a drink containing alcohol in the p ast year? No Points 0 Interpretation Negative Problems Problem Type SNOMED Code ICD Code Onset Dates Problem Status W/U Status Risk Notes Problem 939984903 Colon cancer screening (Z12.11) Active confirmed Problem GERD (gastroesophageal reflux disease) (K21.9) Active confirmed Problem [id number] Gastroesophageal reflux disease, unspecified whether esophagitis present (K21.9) Active confirmed Plan Of Treatment Future Test Test Name Order Date UPPER GI ENDOSCOPY 05/24/2023 COLONOSCOPY 05/24/2023 Insurance Providers Payer Name Payer Address Payer Phone Subscriber Number Group Number Insured Name Patient Relationship to Insured Coverage Start Date Coverage End Date MEDICARE OF [place] [address] [place] [address] [id number] MONICA ESPINOZA Self - patient is the insured MEDICAID OF [facility] [address] [place] [address] [id number] MONICA ESPINOZA Self - patient is the insured Medical (General) History Medical History History ICD Code Hypertension Asthma Bipolar disorder Sciatica Vitamin D deficiency Coarctation of aorta Elevated body mass index Surgical History Surgery Date(Month/Year) Balloon angioplasty for correction of ao rtic coarctation 1991
--- OUTSIDE RECORDS SUMMARY | 2024-12-24 09:54 | XMS_ITS ---
Author Organization [facility] Address [address] [place] [phone] Care Team Providers Care Auto Mechanic Name Role Phone Nadya Piper MD Primary Care Provider Radames Fuentes Jr [phone] REASON FOR VISIT gerd,screening Problems Problem Type SNOMED Code ICD Code Onset Dates Problem Status W/U Status Risk Notes Problem Gastroesophageal reflux disease (792095743) GERD (gastroeso phageal reflux disease) (K21.9) Active confirmed Encounters Encounter Location Date Provider Diagnosis [facility] Outpatient [address] [place] [phone] 07/11/2023 Radames Wright Jr Encounter for screening colonoscopy Z12.11 ; Colon polyps K63.5 and GERD (gastroesophageal reflux disease) K21.9 Assessments Encounter Date Diagnosis (ICD Code) Assessment Notes Treatment Notes Treatment Clinical Notes Section Notes 07/11/2023 Encounter for screening colonoscopy (ICD-10 - Z12.11) 07/11/2023 Colon polyps (ICD-10 - K63.5) 07/11/2023 GERD (gastroesophagea l reflux disease) (ICD-10 - K21.9) Plan Of Treatment No Information Progress Notes * MONICA ESPINOZA EDOB:1975 (49 yo M)Acc No.[id number]:07/11/2023 EGD and COL/MAC Patient:?MONICA ESPINOZA Provider:?Radames Wright MD :1975???Age:47 Y???Sex:Male Андрей e:07/11/2023 Address:[address] [place], [place] [id number] Pcp:Nadya Piper MD Subjective: * Chief Complaints: * ???1. Gerd,screening. * Medical History:? Objective: * Vitals:? Assessment: * Assessment: 1.?Encounter for screening c olonoscopy - Z12.11 (Primary)???2.?Colon polyps - K63.5???3.?GERD (gastroesophageal reflux disease) - K21.9??? Plan: * Treatment: * Procedure Codes:?15291 COLON OSCOPY AND BIOPSY, 0529F INTRVL 3+YRS PTS CLNSCP DOCD, 87044 UPPER GI ENDOSCOPY, BIOPSY * * The named appointment provid er may or may not be the originator of this progress note, and it is not deemed complete until electronically signed by the appointment provider. Sign off status: Pending * Provider:?Radames Wright MD Date:?1 09/11/2022 Generated for Nicki valerio/Ken/eTransmitting on:?12/24/2024 09:54 AM EDT
--- OUTSIDE RECORDS SUMMARY | 2024-12-24 09:54 | XMS_ITS | Clinical Summary ---
Author Organization [facility] Address [address] [place] [address] Care Team Providers Care University Lecturer Name Role Phone Unavailable Primary Care Provider Unavailabl e Medical History Medical History Date Comments Essential hypertension DX:Essent ial hypertension SCC (squamous cell carcinoma) DX :SCC (squamous cell carcinoma); COMMENT: left side removed in 2011 BCC (basal cell carcinoma of skin) DX:BCC (basal cell carcinoma of skin); COMMENT: left upper back Hay fever DX:Hay fever Psoriasis DX:Psoriasis Family History Medical History Relation Name Comments Bladder Cancer Father Stomach cancer Father Relation Name Status Comments Father Alive Mother Alive Social History Tobacco Use Types Packs/Day Years Used Date Smoking Tobacco: Never Smokeless Tobacco: Never Alcohol Use Standard Drinks/Week Comments No 0 (1 standard drink = 0.6 oz pur e alcohol) Sex and Gender Information Value Date Recorded Sex Assigned at Not on file Legal Sex Male 2:46 AM EST Gender Identity Not on file Sexual Orientation Not on file Obstetrics History Plan of Treatment Health Maintenance Due Date Last Done Comments COVID-19 Vaccine (#1) 1982 DTaP,Tdap,and Td Vaccines (1 - Tdap) 1996 Hepatitis B Vaccines (1 of 3 - 19+ 3-dose series) 1996 Pneumococcal Vaccine: Pediat rics (0 to 5 Years) and At-Risk Patients (6 to 64 Years) (1 of 2 - PCV) 1996 Cholesterol Screening (Lipid Panel) 07/10/2022 Colorectal Cancer Screening: Colonoscopy 07/10/2022 Depression Screening 07/10/2022 HIV Screening 07/10/2022 Hepatitis C Screening 07/10/2022 Social Influencers of Health Screening 07/10/2022 Hypertension/CHF/CAD Annual BMP Blood Test 07/21/2022 Influenza Vaccine (Season Ended) 2025 HIB Vaccines Aged Out No longer eligi ble based on patient's age to complete this topic HPV Vaccines Aged Out No longer eligi ble based on patient's age to complete this topic Hepatitis A Vaccines Aged Out No long er eligible based on patient's age to complete this topic IPV Vaccines Aged Out No longer eligi ble based on patient's age to complete this topic MMR Vaccines Aged Out No longer eligi ble based on patient's age to complete this topic Meningococcal ACWY Vaccine Aged Out N o longer eligible based on patient's age to complete this topic Meningococcal B Vaccine Aged Out No l onger eligible based on patient's age to complete this topic RSV Immunization Patients Un qiana 20 months Aged Out No longer eligible b ased on patient's age to complete this topic Varicella Vaccines Aged Out No longer eligible based on patient's age to complete this topic
== END 2024-12-24 09:41 | disposition home or self-care (01) ==
LOC: HO.HCS 09:13
PROVIDERS: PCP Internal Medicine; Visit Provider Internal Medicine
DX: Q25.1 Coarctation of aorta (principal); I77.89 Other specified disorders of arteries and arterioles; I10 Essential (primary) hypertension
CPT/HCPCS: 93010; 99214; G2211

== ENCOUNTER → 2024-12-24 09:13 | Outpatient (BNVA) | payer MEDICARE, MEDICAID, SELFPAY | PROVIDERS: PCP Internal Medicine; Visit Provider Internal Medicine | DX: Q25.1 Coarctation of aorta (principal); I77.89 Other specified disorders of arteries and arterioles; I10 Essential (primary) hypertension | CPT/HCPCS: 93005; 99212 ==

== ENCOUNTER 2025-01-09 10:03 | Outpatient (AMB) | payer MEDICARE, MEDICAID, SELFPAY ==
[2025-01-09 10:14] VITALS: BP 144/98; PULSE 100; O2SAT 96; BMI 31.0
--- NOTE | 2025-01-09 10:14 | AM.OFFVISMDC ---
Intake Vital Signs 01/09/25 10:14 Height 6 ft 1 in Weight 235 lb BMI 31.0 BP 144/98 H Blood Pressure Location Lt brachial Position Sitting Pulse 100 Pulse Source Pulse Oximeter Pulse Oximetry (%) 96 Oxygen Delivery Method Room Air Intake Visit Reasons: AWV Surface Miner Required: No Accompanied by: Self / Same As Patient Allergies adhesive tape [ADHESIVE TAPE] Allergy (Unknown, Verified 01/09/25 10:14) RASH bupropion [From WELLBUTRIN] Allergy (Unknown, Verified 01/09/25 10:14) HIVES carbamazepine [From TEGRETOL] Allergy (Unknown, Verified 01/09/25 10:14) HIVES latex [LATEX] Allergy (Unknown, Verified 01/09/25 10:14) RASH levofloxacin [Levaquin] Allergy (Unknown, Verified 01/09/25 10:14) confusion as per patient, hallucinations terbinafine [From Lamisil] Adverse Reaction (Intermediate, Verified 01/09/25 10:14) Dizziness Medication List - Last Reconciled 01/09/25 by Nadya Piper MD albuterol sulfate 90 mcg/actuation 2 puffs inhalation Q6H PRN cholecalciferol (vitamin D3) 25 mcg PO DAILY fluticasone propionate 50 mcg/actuation (Flonase Allergy Relief) 2 sprays intranasal DAILY fluvoxamine 100 mg PO BEDTIME hydrochlorothiazide 12.5 mg PO QAM lamotrigine (Lamictal) 100 mg PO DAILY lisinopril 40 mg PO QAM loratadine 10 mg PO QAM eifafudf-ngz-jotrsre sulfate 4.5 mg iron (One Daily Multivitamins with Minerals) 1 tab PO DAILY omeprazole 20 mg PO DAILY 90 days risperidone (Risperdal) 3 mg PO DAILY HPI AWV HPI Details [place] of care cardiology Dr. Vanegas, congenital land reclamation specialist Dr. Escalante Gastroenterology Dr. Wright. states BP is high PFSH Medical History (Updated 01/09/25 @ 10:23 by Nadya Piper MD) Paronychia Overweight (BMI 25.0-29.9) Adult general medical exam Viral illness Physical exam Onychomycosis Paronychia of finger of right hand Dizziness Screening for colon cancer Lumbar radiculopathy, acute Sciatica Essential hypertension Mental and behavioral problem Coarctation of aorta Vitamin D deficiency Asthma Bipolar disorder Hypertension Surgical History History of skin cancer H/O basal cell carcinoma excision History of incision and drainage History of angioplasty Family History Father Stomach cancer Bladder cancer Hypertension Mother Hypertension COPD (chronic obstructive pulmonary disease) Heart disease Sleep apnea Mental problem Maternal Uncle Skin cancer Maternal Grandfather Heart disease Social History Housing: Assisted Living Facility (shared living) Alcohol intake: never Patient Tobacco Use Status: Never used Tobacco e-Cigarette/Vaping Use: Never Used Second Hand Smoke Exposure: No service: No Current occupational status: employed Current occupation: [employer] Cognitive needs: No Hearing needs: No Vision needs: Yes (Glasses) Questionnaire Medicare Wellness Checkup What [age] 65-69 (49) What gender do you identify with?: male During the past 4 weeks, how much have you been bothered by emotional problems such as feeling anxious, depressed, irritable, sad or downhearted, and blue?: not at all During the past 4 weeks, has your physical & emotional health limited your social activities with family, friends, neighbors, or groups?: not at all During the past 4 weeks, how much bodily pain have you generally had?: no pain During the past 4 weeks, was someone available to help you if you needed & wanted help?: no, not at all During the past 4 weeks, what was the hardest physical activity you could do for at least 2 minutes?: moderate Can you get to places out of walking distance without help? (For eg., can you travel alone on buses, taxis or drive your car?): Yes Can you go shopping for groceries or clothes without someone's help?: Yes Can you prepare your own meals?: Yes Can you do your housework without help?: Yes Because of any health problems, do you need the help of another person with your personal care needs such as eating, bathing, dressing or getting around the house?: No Can you handle your own money without help?: Yes During the past 4 weeks, how would you rate your health in general?: excellent During the past 4 weeks how have things been going for you?: very well; could hardly better Are you having difficulties driving your car?: not applicable, I don't use a car Do you always fasten your seat belt when you are in a car?: no During past 4 weeks, have you been bothered by the following: never: Falling or dizzy when standing up, Sexual problems?, Trouble eating well?, Teeth or denture problems?, Problems using the telephone? and Tiredness or fatigue? Have you fallen 2 or more times in the past year?: No Are you afraid of falling?: No Are you a smoker?: no During the past 4 weeks, how many drinks of wine, beer, or other alcoholic beverages did you have?: no alcohol at all Do you exercise for about 20 minutes 3 or more times a week?: yes, most of the time Have you been given information to help with the following?: yes: Keeping track of your medications? and no: Hazards in your house that might hurt you? How often do you have trouble taking medicines the way you have been told to take them?: I always take medicine as prescribed How confident are you that you can control & manage most of your health problems?: very confident What is your race?: White PHQ-9 Over the last 2 weeks, how often have you been bothered by any of the following problems? 1. Little interest or pleasure in doing things: not at all 2. Feeling down, depressed, or hopeless: not at all 3. Trouble falling or staying asleep, or sleeping too much: not at all 4. Feeling tired or having little energy: not at all 5. Poor appetite or overeating: not at all 6. Feeling bad about yourself - or that you are a failure or have let yourself or your family down: not at all 7. Trouble concentrating on things, such as reading the newspaper or watching television: not at all 8. Moving or speaking so slowly that other people could have noticed. Or the opposite - being so fidgety or restless that you have been moving around a lot more than usual: not at all 9. Thoughts that you would be better off or of hurting yourself in some way: not at all Total score: 0 Depression Screening Interpretation: Negative Depression Screening Done: Yes 92939 - PHQ-9 Billing: Yes Source: Developed by Drs. Ranulfo Noriega, Rema James, Galdino Krueger and colleagues, with an educational imer from [employer]. PHQ-2/PHQ-9 PHQ-2 Over the last 2 weeks, how often have you been bothered by any of the following problems? 1. Little interest or pleasure in doing things: not at all 2. Feeling down, depressed, or hopeless: not at all Total score: 0 If score is 3 or greater, continue 3. Trouble falling or staying asleep, or sleeping too much: not at all 4. Feeling tired or having little energy: not at all 5. Poor appetite or overeating: not at all 6. Feeling bad about yourself - or that you are a failure or have let yourself or your family down: not at all 7. Trouble concentrating on things, such as reading the newspaper or watching television: not at all 8. Moving or speaking so slowly that other people could have noticed. Or the opposite - being so fidgety or restless that you have been moving around a lot more than usual: not at all 9. Thoughts that you would be better off or of hurting yourself in some way: not at all Total score: 0 0-4 None-Minimal, 5-9 Mild, 10-14 Moderate, 15-19 Moderately Severe, 20-27 Severe Source: Developed by Drs. Ranulfo Noriega, Rema James, Galdino Krueger and colleagues, with an educational imer from [employer]. Thrive Questionnaire Date Thrive assessed: 01/09/25 I am a: Parent/Caregiver What is your living situation today?: I have a steady place to live Within the past 12 months, did the food you bought not last and you didn't have the money to get more?: Never true Within the past 12 months, did you worry whether your food would run out before you got money to buy more?: Never true Do you have trouble paying for medicines?: No Do you have trouble getting transportation to medical appointments?: No Do you have trouble paying your heating and electricity bill?: No Do you have trouble taking care of your child, family member or friend?: No Do you have trouble with day-to-day activities such as bathing, preparing meals, shopping, managing finances, etc.?: No Are you currently unemployed and looking for a job?: No Are you interested in more education?: No Please select the resources that you would like help with: None Currently or been in a relationship where the following occur: No concerns reported THRIVE Score: 0 TONY-7 AMB Questionnaire TONY-7 Date TONY - 7 assessed: 01/09/25 Feeling nervous, anxious, or on edge: 0 = Not at all Not being able to stop or control worryin = Not at all Worrying too much about different things: 0 = Not at all Trouble relaxin = Not at all Being so restless that it is hard to sit still: 0 = Not at all Becoming easily annoyed or irritable: 0 = Not at all Feeling afraid as if something awful might happen: 0 = Not at all Total TONY-7 score (0-4 normal; 5-9 mild; 10-14 moderate; 15-21 severe): 0 Source: Developed by Drs. Ranulfo Noriega, Rema James, Galdino Krueger and colleagues, with an educational imer from [employer]. Review of Systems Const Denies poor appetite and Denies weakness Eyes Denies no additional complaints ENT Reports Normal hearing present, Denies dizziness, Denies nasal congestion, Denies tinnitus and Denies sore throat Card Denies chest pain, Denies syncope, Denies rapid heart rate and Denies dyspnea Resp Denies cough and Denies dyspnea GI Denies change in stool character, Reports constipation, Denies diarrhea, Denies nausea and Denies vomiting Denies dysuria and Denies urinary frequency Neuro Reports Normal hearing present, Denies confusion, Denies dizziness, Denies syncope and Denies weakness Psych Denies confusion Physical Exam Vital Signs: Last Vital Signs Pulse 100 01/09/25 10:14 BP 144/98 H 01/09/25 10:14 Pulse Ox 96 01/09/25 10:14 Oxygen Delivery Method Room Air 01/09/25 10:14 BMI result Body Mass Index 31.0 Const General: No confusion Orientation/consciousness: No confusion HEENT Head: Yes normocephalic Ears: external ears normal and TM's normal bilaterally Face and sinus: Yes normal facial exam Mouth: moist mucous membranes Throat: Yes tonsils normal Eyes Conjunctivae: conjunctivae normal Pupils: Equal, round and reactive pupils present and Pupil accommodation reflex normal Direct Ophthalmoscopy: normal light reflex Neck Neck: No lymphadenopathy Thyroid: Thyroid normal Chest Chest palpation & inspection: normal inspection of the chest Resp Effort & Inspection: normal respiratory effort and no audible wheezes Auscultation: clear to auscultation bilaterally, no crackles, no wheezes and lung sounds not diminished Cardio Rate: regular rate Rhythm: regular rhythm Peripheral pulses: radial pulses present and dorsalis pedis present GI Palpation (GI): no masses Auscultation: normal bowel sounds and normoactive bowel sounds Rectal Exam - Male: Yes deferred Skin General skin exam: no rashes or lesions noted Rashes: no rashes Neuro General: No confusion Cranial nerves: Yes Equal, round and reactive pupils present and Yes Normal hearing present Cognition (Neuro): normal cognition Gait exam (Neuro): Normal gait present Motor exam (neuro): 5/5 motor strength present throughout Deep tendon reflexes (DTR's): Right brachioradialis reflex intensity grade: 2+, Left brachioradialis reflex intensity grade: 2+, Right patellar reflex intensity grade: 2+ and Left patellar reflex intensity grade: 2+ Extrem General: No edema Assessment & Plan Assessment & Plan (1) Medicare annual wellness visit, subsequent: Code(s): Z00.00 - Encounter for general adult medical examination without abnormal findings Plan: Patient is advised to eat healthy, keep well hydrated, keep active and have adequate sleep. (2) GERD (gastroesophageal reflux disease): Code(s): K21.9 - Gastro-esophageal reflux disease without esophagitis Qualifiers: Esophagitis presence: without esophagitis Qualified Code(s): K21.9 - Gastro-esophageal reflux disease without esophagitis Plan: Avoid the foods that causes that usually spicy foods, tomato products, juices, coffee, soda and foods that your sensitive to. After eating do not lie down, allow 3-4 hours before in lie down. And keep the head of bed above 30 degrees to avoid the acid from going up. (3) Coarctation of aorta: Comment: Discrete side of coarctation be on left subclavian origin, treated by balloon angioplasty in 1991. Code(s): Q25.1 - Coarctation of aorta Plan: Patient has been seen by the congenital land reclamation specialist and follow-up every 5 years. Meanwhile here will follow-up also. (4) Essential hypertension: Code(s): I10 - Essential (primary) hypertension Plan: Continue with blood pressure medication. Decrease salt intake and exercise on lisinopril 40 mg once a day, hydrochlorothiazide 12.5 mg once a day (5) Impaired glucose tolerance: Code(s): R73.02 - Impaired glucose tolerance (oral) Plan: Decrease the amount of carbohydrate intake, pasta, bread, rice and potatoes are all sugar and that is aside from all the sweet stuff, remember that fruits are good but they are Sweet also. Advised to get blood work (6) Asthma: Code(s): J45.909 - Unspecified asthma, uncomplicated Qualifiers: Asthma complication type: uncomplicated Asthma persistence: intermittent Asthma severity: mild Qualified Code(s): J45.20 - Mild intermittent asthma, uncomplicated Plan: Stable (7) Bipolar disorder: Comment: Dr. Wills Code(s): F31.9 - Bipolar disorder, unspecified Qualifiers: Active/Remission status: currently active Current bipolar episode type: manic Current episode severity: mild Qualified Code(s): F31.11 - Bipolar disorder, current episode manic without psychotic features, mild Plan: Continue with counseling and therapy. On fluvoxamine lamotrigine risperidone Plan History of Present Illness The patient is a 49-year-old male presenting with an annual wellness visit. His medical history includes obesity, bipolar disorder, asthma, impaired glucose tolerance, hypertension, and GERD. The patient has undergone surgical intervention for aortic coarctation via balloon angioplasty in 1991. Recent imaging assessments noted aortic dilation without significant regional wall motion abnormalities. His cardiac MRI in June 2024 showed a descending thoracic aorta measuring 1.8 cm and an echocardiogram from December 2024 demonstrated normal systolic function with a mildly dilated aortic root. The patient's controlled blood pressure management primarily includes lisinopril 40 mg daily. Past laboratory tests from July 2023 depicted normal blood counts and functions, alongside a moderate LDL level. Lifestyle adjustments for risk management were discussed. He is advised to continue thorough follow-up care with the cardiology department every five years, supplemented by evaluations here locally. Health Maintenance - Annual wellness visit completed. - Blood pressure management plans discussed; currently on lisinopril 40 mg daily. - Recommended maintaining routine follow-up with congenital land reclamation specialist and local box office clerk. - GERD management discussed with continued attention to lifestyle adjustments, including diet and exercise. - Discussed importance of hydration and consuming a balanced diet with fewer carbohydrates and more vegetables. - Reviewed vaccination status: tetanus and pneumonia vaccines up-to-date. - Encouragement on the importance of regular physical activity. Social History - Reports efforts to stay hydrated and consume a balanced diet. - Engages in physical activities and plans to maintain an active lifestyle. Review of Systems - Cardiovascular: Reports slightly elevated blood pressure. - Gastrointestinal: Reports gastroesophageal reflux disease. - Neurological: Declined discussion on symptomatic concerns specific to bipolar disorder or complications thereof. - Endocrine: Denies current symptoms pertaining to glucose intolerance. - General: Reports efforts to lead a healthy lifestyle by monitoring dietary intake and level of physical activity. Physical Exam General: Cooperative, healthy appearing, comfortable, no acute distress and well developed Orientation: Patient oriented x3 Limitations: No limitations Head: Normal to inspection Ears: Hearing grossly normal bilaterally Nose: Normal external nose present Face and sinus: Normal facial exam Eyes: Appearance normal, both eyes and all related structures Neck: Normal visual inspection and Yes full ROM Respiratory: Normal respiratory effort and able to speak in complete sentences. Clear to auscultation bilaterally Cardiovascular: Regular rate and rhythm. Normal S1 and S2. Blood pressure is a little higher than average GI: Normal to inspection. Soft to palpation and nontender Skin: No rashes or lesions noted Neuro: Patient oriented x3 Extremities: Normal to inspection Results - Labs: Last blood work done in July 2023 with normal blood count, electrolytes, and renal function. - Tests and Diagnostics: - Cholesterol checked in July 2023 with LDL recorded at 107. - Echocardiogram conducted on December 17, 2024, showing normal left ventricular size, wall thickness, ejection fraction of 60-65%, and mild aortic regurgitation. - Cardiac MRI in June 2024 showing a descending thoracic aorta of 1.8 cm. Plan The patient is advised to continue lisinopril 40 mg daily for controlling hypertension, with integrated follow-ups by specialty and local cardiologists for his congenital heart condition and aortic assessments. Diabetes measurement and monitoring are to be carried out through annual blood tests. Lifestyle modification involving regular physical activity, reduction of carbohydrate intake, and increased vegetable consumption form part of the GERD and overall health maintenance strategy. He remains on medications for his bipolar disorder, closely monitored through psychiatric care. Coordination between Dr. Vanegas and Dr. Escalante will ensure continued comprehensive management for any potential cardiac complications. Patient was informed and verbally consented to the use of an ambient scribe for clinic note documentation during this visit. Discussion Notes I thoroughly explained to the patient the importance of maintaining controlled blood pressure through adherence to lisinopril and regular cardiology consultations. For his hypertension and cardiac health, we discussed the risks associated with a dilated aorta and potential future complications. The significance of managing impaired glucose tolerance with diet and lifestyle changes was underscored, emphasizing continual blood work for monitoring. We reviewed his medication regimen for bipolar disorder, stress management, and GERD treatment. I advised on engaging in regular physical activity, dietary improvements, and preventive measures against infections, utilizing up-to-date vaccines. Return precautions and anticipatory guidance for his ongoing medical issues were clearly communicated. Patient Instructions - Continue taking lisinopril 40 mg daily as prescribed for blood pressure. - Schedule and maintain regular follow-ups with both local and specialty cardiologists. - Pursue active lifestyle changes by maintaining a balanced diet emphasizing vegetables and lowering carbohydrate intake. - Keep up with regular exercise and stay well-hydrated. - Adhere to prescribed medications for bipolar disorder and participate in regular counseling. - Return to the clinic if new symptoms arise or conditions worsen. - Ensure vaccinations remain current. Medications: New acetaminophen ER (Tylenol 8 Hour) 650 mg PO Q12H PRN 30 tabs 0RF pain dextromethorphan polistirex ER (Delsym 12 hour) 10 mL PO Q12H PRN 89 mL 3RF cough amoxicillin 2,000 mg orally 1 hours before procedure; 4 tabs 2RF Refilled fluticasone propionate 50 mcg/actuation (Flonase Allergy Relief) administer into each nostril 2 sprays intranasal DAILY 16 grams 11RF Quality Reporting (2019) Depression/Bipolar (159/160/161/177) PHQ-9: Total score: 0 Coding Level of Care Code Medicare Subsequent (G0439) Diagnoses Medicare annual wellness visit, subsequent Z00.00 Gastroesophageal reflux disease without esophagitis K21.9 Esophagitis presence: without esophagitis Coarctation of aorta Q25.1 Essential hypertension I10 Impaired glucose tolerance R73.02 Mild intermittent asthma without complication J45.20 Asthma complication type: uncomplicated Asthma persistence: intermittent Asthma severity: mild Bipolar affective disorder, currently manic, mild F31.11 Active/Remission status: currently active Current bipolar episode type: manic Current episode severity: mild Additional Codes PHQ-9 - 89724 - PHQ-9 Billing: Yes ([id number])
--- OUTSIDE RECORDS SUMMARY | 2025-01-09 11:36 | XMS_ITS | Patient Health Record ---
Author Organization [facility] Address [address] [place] [id number] Care Team Providers Care Editor Name Role Phone Nadya Piper MD Primary Care Provider Radames Fuentes Jr Unavailable Allergies Allergen (clinical drug ingredient) Drug/Non Drug Allergy documented on EMR Reaction Allergy Type Onset Date Status Latex Latex Unknown Allergy Active Band-Aid Anti-Itch Unknown Drug Allergy Active Wellbutrin Unknown Drug Allergy Active carbamazepine TEGretol Unknown Drug Allergy Act ronald Levaquin Unknown Drug Allergy Active Reason For Referral No Information [...] Problem Status W/U Status Risk Notes Problem 945453175 Colon cancer screening (Z12.11) Active confirmed Problem Gastroesophageal reflux disease (908348307) GERD (gastroesophageal reflux disease) (K21.9) Active confirmed Problem 584802191 Gastroesophageal reflux disease, unspecified whether esophagitis present (K21.9) Active confirmed Plan Of Treatment Future Test Test Name Order Date UPPER GI ENDOSCOPY 05/24/2023 COLONOSCOPY 05/24/2023 Insurance Providers Payer Name Payer Address Payer Phone Subscriber Number Group Number Insured Name Patient Relationship to Insured Coverage Start Date Coverage End Date MEDICARE OF [place] [address] [place] [id number] MONICA ESPINOZA Self - patient is the insured MEDICAID OF [facility] [address] [place] [address] [id number] MONICA ESPINOZA Self - patient is the insured Medical (General) History Medical History History ICD Code Hypertension Asthma Bipolar disorder Sciatica Vitamin D deficiency Coarctation of aorta Elevated body mass index Surgical History Surgery Date(Month/Year) Balloon angioplasty for correction of ao rtic coarctation 1991
== END 2025-01-09 10:54 | disposition home or self-care (01) ==
LOC: HO.HMCH 10:03
PROVIDERS: PCP Internal Medicine; Visit Provider Internal Medicine
DX: Z00.00 Encounter for general adult medical examination without abnormal findings (principal); I10 Essential (primary) hypertension; F31.11 Bipolar disorder, current episode manic without psychotic features, mild; K21.9 Gastro-esophageal reflux disease without esophagitis; Q25.1 Coarctation of aorta; R73.02 Impaired glucose tolerance (oral); J45.20 Mild intermittent asthma, uncomplicated

== ENCOUNTER → 2025-01-09 10:03 | Outpatient (BNVA) | payer MEDICARE, MEDICAID, SELFPAY | PROVIDERS: PCP Internal Medicine; Visit Provider Internal Medicine | DX: Z00.00 Encounter for general adult medical examination without abnormal findings (principal); K21.9 Gastro-esophageal reflux disease without esophagitis; Q25.1 Coarctation of aorta; I10 Essential (primary) hypertension; R73.02 Impaired glucose tolerance (oral); J45.20 Mild intermittent asthma, uncomplicated; F31.11 Bipolar disorder, current episode manic without psychotic features, mild | CPT/HCPCS: 96127 ==

== ENCOUNTER 2025-01-24 08:56 | Outpatient (REF) | payer MEDICARE, MEDICAID, SELFPAY ==
--- OUTSIDE RECORDS SUMMARY | 2025-01-24 09:05 | XMS_ITS | Patient Health Record ---
Author Organization [facility] Address [address] [place] [id number] Care Team Providers Care Photographer Assistant Name Role Phone Nadya Piper MD Primary Care Provider Radaems Fuentes Jr Unavailable [phone] Allergies Allergen (clinical drug ingredient) Drug/Non [...] Problem Status W/U Status Risk Notes Problem 443026314 Colon cancer screening (Z12.11) Active confirmed Problem Gastroesophageal reflux disease (694230301) GERD (gastroesophageal reflux disease) (K21.9) Active confirmed Problem [id number] Gastroesophageal reflux disease, unspecified whether esophagitis present (K21.9) Active confirmed Plan Of Treatment Future Test Test Name Order Date UPPER GI ENDOSCOPY 05/24/2023 COLONOSCOPY 05/24/2023 Insurance Providers Payer Name Payer Address Payer Phone Subscriber Number Group Number Insured Name Patient Relationship to Insured Coverage Start Date Coverage End Date MED[place]ARE OF [place] [address] [place] [id number] MONICA ESPINOZA Self - patient is the insured MEDICAID OF [facility] [address] [place] [address] [phone] [id number] MONICA ESPINOZA Self - patient is the insured Medical (General) History Medical History History ICD Code Hypertension Asthma Bipolar disorder Sciatica Vitamin D deficiency Coarctation of aorta Elevated body mass index Surgical History Surgery Date(Month/Year) Balloon angioplasty for correction of ao rtic coarctation 1991
[2025-01-24 10:06] LABS: MANUAL DIFF FLAG NO
[2025-01-24 10:11] LABS: Basophils Absolute Auto 0.1 X10*3/uL (0.0-0.2); Basophils Percent Auto 1.4 % (0-2); Eosinophils Absolute Auto 0.1 X10*3/uL (0.0-0.4); Eosinophils Percent Auto 2.3 % (0-4); Hematocrit 41.9 % (42.0-52.0); Hemoglobin 14.5 g/dl (14.0-18.0); Imm Gran Abs Auto 0.02 X10*3/uL (0.00-0.03); Imm Gran Pct Auto 0.4 % (0.0-0.4); Lymphocytes Absolute Auto 1.2 X10*3/uL (1.2-4.9); Lymphocytes Percent Auto 23.4 % (20-40); Mean Corpuscular HGB Conc 34.6 g/dl (31.0-36.0); Mean Corpuscular Volume 92.5 fL (80.0-98.0); Mean Platelet Volume 9.8 fL (9.4-12.4); Monocytes Absolute Auto 0.5 X10*3/uL (0.1-1.2); Monocytes Percent Auto 9.1 % (2-11); Neutrophils Absolute Auto 3.3 x10*3/uL (2.0-8.3); Neutrophils Percent Auto 63.4 % (45-73); Platelet Count 261 X10*3/uL (160-400); Red Blood Count 4.53 X10*6/uL (4.60-5.80); Red Cell Distribution Width 11.9 % (11.0-16.0); White Blood Count 5.2 X10*3/uL (4.8-10.8)
[2025-01-24 10:52] LABS: Alanine Aminotransferase 27 U/L (0-40); Alkaline Phosphatase 52 U/L (39-117); Anion Gap 12 (12-20); Aspartate Amino Transferase 26 U/L (5-37); Bilirubin Total 0.7 mg/dL (0.0-1.0); Blood Urea Nitrogen 12 mg/dL (9-16); Calcium 9.8 mg/dL (8.4-10.2); Carbon Dioxide 28 mmol/L (22-29); Chloride 103 mmol/L (96-108); Cholesterol 133 mg/dL (<200); Estimated Glomerular Filt Rate > 60; Glucose Random 99 mg/dL (60-115); HDL Cholesterol 43 mg/dL (>40); LDL Cholesterol Calculated 79 mg/dL (<100); Potassium 4.1 mmol/L (3.3-5.1); Sodium 139 mmol/L (135-145); Total Protein 7.3 g/dL (6.5-8.0); Triglycerides 57 mg/dL (<150)
[2025-01-24 10:54] LABS: Free T4 (Free Thyroxine) 1.06 ng/dL (0.71-1.85)
[2025-01-24 11:11] LABS: Folate 8.8 ng/mL (> or = 4.0); Vitamin B12 369 pg/mL (200-900)
== END 2025-01-24 08:57 | disposition home or self-care (01) ==
LOC: HO.HMGCLDS 08:56
PROVIDERS: PCP Internal Medicine; Visit Provider Internal Medicine
DX: I10 Essential (primary) hypertension (principal); E78.00 Pure hypercholesterolemia, unspecified
CPT/HCPCS: 36415; 80053; 80061; 82607; 82746; 84439; 84443; 85025

== ENCOUNTER 2025-07-11 10:45 | Outpatient (AMB) | payer MEDICARE, MEDICAID, SELFPAY ==
--- NOTE | 2025-07-11 10:56 | A.OFFPC_ITS ---
Vital Signs 07/11/25 10:59 Height 6 ft 1 in Weight 236 lb BMI 31.1 BP 140/82 H Blood Pressure Location Lt brachial Position Sitting Pulse 111 H Pulse Source Pulse Oximeter Temp 97.3 F Temp Source Temporal Artery Scan Pulse Oximetry (%) 97 Oxygen Delivery Method Room Air Intake Visit Reasons: 6 month f/u Intake Note: Patient is here to follow up on HTN. Requesting for PSA lb order Director Of Instrumental Music Required: No Supervisor Elementary Education: Not Required per policy Accompanied by: Self / Same As Patient Allergies adhesive tape (ADHESIVE TAPE) Allergy (Unknown, Verified 07/11/25 10:57) RASH bupropion (From WELLBUTRIN) Allergy (Unknown, Verified 07/11/25 10:57) HIVES carbamazepine (From TEGRETOL) Allergy (Unknown, Verified 07/11/25 10:57) HIVES latex (LATEX) Allergy (Unknown, Verified 07/11/25 10:57) RASH levofloxacin (Levaquin) Allergy (Unknown, Verified 07/11/25 10:57) confusion as per patient, hallucinations terbinafine (From Lamisil) Adverse Reaction (Intermediate, Verified 07/11/25 10:57) Dizziness Medication List - Last Reconciled 07/11/25 by Luciano Ramírez MD acetaminophen ER (Tylenol 8 Hour) 650 mg PO Q12H PRN albuterol sulfate 90 mcg/actuation 2 puffs inhalation Q6H PRN amoxicillin 2,000 mg orally 1 hours before procedure; cholecalciferol (vitamin D3) 25 mcg PO DAILY dextromethorphan polistirex ER (Delsym 12 hour) 10 mL PO Q12H PRN fluticasone propionate 50 mcg/actuation (Flonase Allergy Relief) 2 sprays intranasal DAILY fluvoxamine 100 mg PO BEDTIME hydrochlorothiazide 12.5 mg PO QAM lamotrigine (Lamictal) 100 mg PO DAILY lisinopril 40 mg PO QAM loratadine 10 mg PO QAM [id number]-[id number]-qvusosi sulfate 4.5 mg iron (One Daily Multivitamins with Minerals) 1 tab PO DAILY omeprazole 20 mg PO DAILY 90 days risperidone (Risperdal) 3 mg PO DAILY Tobacco use date assessed: 07/11/25 Dental Screening Dental Screen Date: 07/11/25 Did you have a dental visit in the last 12 months?: Yes Did you have a dental problem in the last 6 months where you did not have access to dental care?: No Was dental information given to patient?: Patient has dentist HPI HPI Comments History of Present Illness Details The patient is a 49 year old male presenting for a follow-up on blood test results and health maintenance. He reports feeling well and has no new complaints. He reports that his program requested PSA. I advised the patient that guidelines recommends checking PSA starting at 50 but since his program requested it wee will order it. Recent blood work from January 2025, including a CBC and CMP, was reviewed and showed normal results for kidney function, liver function, and thyroid hormone levels. His history includes a colonoscopy and an upper endoscopy performed concurrently by Dr. Wright approximately two years ago, both of which were normal. He received an influenza vaccine today. [facility] Medical History (Updated 07/11/25 @ 11:45 by Luciano Ramírez MD) Paronychia Overweight (BMI 25.0-29.9) Adult general medical exam Viral illness Physical exam Onychomycosis Paronychia of finger of right hand Dizziness Screening for colon cancer Lumbar radiculopathy, acute Sciatica Essential hypertension Mental and behavioral problem Coarctation of aorta Vitamin D deficiency Asthma Bipolar disorder Hypertension Surgical History History of skin cancer H/O basal cell carcinoma excision History of incision and drainage History of angioplasty Family History Father Stomach cancer Bladder cancer Hypertension Mother Hypertension COPD (chronic obstructive pulmonary disease) Heart disease Sleep apnea Mental problem Maternal Uncle Skin cancer Maternal Grandfather Heart disease Social History Housing: Assisted Living Facility Alcohol intake: never Patient Tobacco Use Status: Never used Tobacco e-Cigarette/Vaping Use: Never Used Second Hand Smoke Exposure: No service: No Current occupational status: employed Current occupation: [employer] Cognitive needs: No Hearing needs: No Vision needs: Yes (Glasses) Questionnaire PHQ-9 Over the last 2 weeks, how often have you been bothered by any of the following problems? 1. Little interest or pleasure in doing things: not at all 2. Feeling down, depressed, or hopeless: not at all 3. Trouble falling or staying asleep, or sleeping too much: not at all 4. Feeling tired or having little energy: not at all 5. Poor appetite or overeating: not at all 6. Feeling bad about yourself - or that you are a failure or have let yourself or your family down: not at all 7. Trouble concentrating on things, such as reading the newspaper or watching television: not at all 8. Moving or speaking so slowly that other people could have noticed. Or the opposite - being so fidgety or restless that you have been moving around a lot more than usual: not at all 9. Thoughts that you would be better off or of hurting yourself in some way: not at all Total score: 0 Depression Screening Interpretation: Negative Depression Screening Done: Yes Source: Developed by Drs. Ranulfo Noriega, Rema James, Galdino Krueger and colleagues, with an educational imer from Screen. Thrive Questionnaire Date Thrive assessed: 01/09/25 I am a: Patient What is your living situation today?: I have a steady place to live Within the past 12 months, did the food you bought not last and you didn't have the money to get more?: Often true Within the past 12 months, did you worry whether your food would run out before you got money to buy more?: Often true Do you have trouble paying for medicines?: No Do you have trouble getting transportation to medical appointments?: No Do you have trouble paying your heating and electricity bill?: No Do you have trouble taking care of your child, family member or friend?: No Do you have trouble with day-to-day activities such as bathing, preparing meals, shopping, managing finances, etc.?: No Are you currently unemployed and looking for a job?: Yes Are you interested in more education?: Yes Please select the resources that you would like help with: None Currently or been in a relationship where the following occur: No concerns reported THRIVE Score: 2 AUDIT C Alcohol Use Questionnaire (AUDIT-C) 1. How often do you have a drink containing alcohol?: Never Total Score: 0 TONY-7 AMB Questionnaire TONY-7 Date TONY - 7 assessed: 06/05/25 Feeling nervous, anxious, or on edge: 0 = Not at all Not being able to stop or control worryin = Not at all Worrying too much about different things: 0 = Not at all Trouble relaxin = Not at all Being so restless that it is hard to sit still: 0 = Not at all Becoming easily annoyed or irritable: 0 = Not at all Feeling afraid as if something awful might happen: 0 = Not at all Total TONY-7 score (0-4 normal; 5-9 mild; 10-14 moderate; 15-21 severe): 0 Source: Developed by Drs. Ranulfo Noriega, Rema James, Galdino Krueger and colleagues, with an educational imer from Screen. Review of Systems Const Details: Positives besides what was mentioned in HPI are in BOLD Constitutional: No Weight Change, No Fever, No Chills, No Night Sweats, No Fatigue, No Malaise ENT/Mouth: No Hearing Changes, No Ear Pain, No Nasal Congestion, No Sinus Pain, No Hoarseness, No sore throat, No Rhinorrhea, No Swallowing Difficulty Eyes: No Eye Pain, No Swelling, No Redness, No Foreign Body, No Discharge, No Vision Changes Cardiovascular: No Chest Pain, No SOB, No PND, No Dyspnea on Exertion, No Orthopnea, No Claudication, No Edema, No Palpitations Respiratory: No Cough, No Sputum, No Wheezing, No Smoke Exposure, No Dyspnea Gastrointestinal: No Nausea, No Vomiting, No Diarrhea, No Constipation, No Pain, No Heartburn, No Anorexia, No Dysphagia, No Hematochezia, No Melena, No Flatulence, No Jaundice Genitourinary: No Dysmenorrhea, No DUB, No Dyspareunia, No Dysuria, No Urinary Frequency, No Hematuria, No Urinary Incontinence, No Urgency, No Flank Pain, No Urinary Flow Changes, No Hesitancy Musculoskeletal: No Arthralgias, No Myalgias, No Joint Swelling, No Joint Stiffness, No Back Pain, No Neck Pain, No Injury History Skin: No Skin Lesions, No Pruritis, No Hair Changes, No Breast/Skin Changes, No Nipple Discharge Neuro: No Weakness, No Numbness, No Paresthesias, No Loss of Consciousness, No Syncope, No Dizziness, No Headache, No Coordination Changes, No Recent Falls Psych: No Anxiety/Panic, No Depression, No Insomnia, No Personality Changes, No Delusions, No Rumination, No SI/HI/AH/VH, No Social Issues, No Memory Changes, No Violence/Abuse Hx., No Eating Concerns Heme/Lymph: No Bruising, No Bleeding, No Transfusions History, No Lymphadenopathy Endocrine: No Polyuria, No Polydipsia, No Temperature Intolerance Physical exam (Primary Care) Vital Signs: Last Vital Signs Temp 97.3 F 07/11/25 10:59 Pulse 111 H 07/11/25 10:59 BP 140/82 H 07/11/25 10:59 Pulse Ox 97 07/11/25 10:59 Oxygen Delivery Method Room Air 07/11/25 10:59 BMI result Body Mass Index 31.1 Tobacco/Smoking Status: Tobacco use Status Tobacco use date assessed 07/11/25 07/11/25 11:05 Patient Tobacco Use Status Never used Tobacco 07/11/25 11:05 e-Cigarette/Vaping Use Never Used 07/11/25 11:05 PHQ-9: PHQ-9 Score PHQ-9: Total score 0 07/11/25 11:13 Depression Screening Interpretation: Negative Thrive Assessment: Date of Thrive Assessment Date Thrive assessed 01/09/25 07/11/25 11:05 Currently or been in a relationship where the following occur: No concerns reported Const Other: Pertinent findings are in BOLD GENERAL APPEARANCE NAD, activity normal for age, well developed/ well nourished, no cyanosis, pallor, or diaphoresis. EYES lids/conjunctiva normal. EARS/NOSE/THROAT Mucous membranes moist, nares normal, lips/teeth normal uvula midline without oral pharyngeal erythema, exudate or swelling TMs normal bilaterally. No lymphangitis/lymphedema. HEAD/NECK normocephalic atraumatic, no facial trauma, neck is supple. RESPIRATORY respiratory effort normal, speaks in full sentences, no tripod position, no accessory muscle use. Lungs clear to auscultation without rhonchi, wheezes, rales CARDIAC Regular rate and rhythm, no edema. ABDOMINAL Soft, ND/NT. No evidence of fluid wave. No pulsatile masses on exam, rebound tenderness, Peck sign or pain over Mcburney's point. MUSCLES/EXTREMITIES No abnormal range of motion, no swelling. SKIN Warm, pink and dry. No rashes, dermatoses, petechiae or lesions. NEUROLOGICAL Speech is clear and appropriate. Normal level of consciousness. Gait and coordination are normal. 5/5 strength in all extremities. PSYCH Normal mood and affect. Judgement/competence is appropriate Office Procedures Flu Questionnaire Does the patient have a severe egg allergy?: No Does the patient have severe life threatening allergies?: No Does the patient have a fever or illness today?: No Has the patient ever had Guillain-Livingston Syndrome?: No Has the patient ever had any past reaction to a flu shot?: No Immunizations Fluarix [id number] (PF) 45 mcg (15 mcg x 3)/0.5 mL IM syringe Performing Provider: Luciano Ramírez MD [facility] Administered by: Jo Ann Moss LPN on 07/11/25 11:12 Dose Route Admin Location Dispensed Lot Number Expiration Date NDC Real Estate Rental Agent 0.5 mL IM Left Deltoid 0.5 mL [id number] 02/03/26 33566-461-00 [employer] VIS Given Date VIS Provided VIS Publication Date 07/11/25 Single Vaccine 24 Eligibility Eligibility Date Funding Source Not [facility] Eligible 07/11/25 Private Coding Level of Care Code Est Pt Level 4 (42191) Diagnoses Healthcare maintenance Z00.00 Time Spent (min) 30 Assessment & Plan Assessment & Plan (1) Healthcare maintenance: Code(s): Z00.00 - Encounter for general adult medical examination without abnormal findings Category: Medical Plan: CBC, CMP, Lipid panel, A1C, TSH w T4. Done recently. Shingles 2 doses when >50 yo. At 50. COVID: two doses. Completed in the past. Pneumococcal: >50 yo. 18-49 with CKD, lung disease, weakened immune system, Heart disease, DM, cochlear implant. At 50. Flu vaccine: COmpleted today. Tdap: every 10 years. Due in 2025. Colonoscopy: 45-75. Done in 2022. Records not available. AAA: 65 -75. NI[address] CT lun - 80. NI. PSA: 50 -70 every two years. Ordered today as requested by the patient's program. Plan I reviewed the recent laboratory results, including the CBC, CMP, and thyroid tests, and informed the patient that they are all normal. We discussed ordering a PSA blood test for prostate cancer screening, which the [facility] agency requires. F-U in [address] Piper. Orders: Orders Influenza [id number] Immunization Today Z23 - Encounter for immunization PSA,Total (Free>4and<10) Today Z00.00 - Encounter for general adult medical examination without abnormal findings
[2025-07-11 10:59] VITALS: BP 140/82; PULSE 111; TEMP 36.3; O2SAT 97; BMI 31.1
--- OUTSIDE RECORDS SUMMARY | 2025-07-11 12:57 | XMS_ITS | Clinical Summary ---
Author Organization [facility] Address [address] [place] [address] Care Team Providers Care Career Development Consultant Name Role Phone Unavailable Primary Care Provider [...] Health Maintenance Due Date Last Done Comments Colorectal Cancer Screening: Colonoscopy 1977 DTaP,Tdap,and Td Vaccines (1 - Tdap) 1996 Hepatitis B Vaccines (1 of 3 - 19+ 3-dose series) 1996 Cholesterol Screening (Lipid Panel) 07/10/2022 HIV Screening 07/10/2022 Hepatitis C Screening 07/10/2022 Social Influencers of Health Screening 07/10/2022 Hypertension/CHF/CAD Annual BMP Blood Test 07/21/2022 Depression Screening 08/07/2024 COVID-19 Vaccine (1 - 2024-2 6 season) 2025 Influenza Vaccine (#1) 2025 RSV Immunization Adult Patie nts (1 - 1-dose 75+ series) 2052 HIB Vaccines Aged Out No longer eligi [...] on patient's age to complete this topic Pneumococcal Vaccine: Pediat rics (0 to 5 Years) and At-Risk Patients (6 to 49 Years) Aged Out No longer eligible b ased on patient's age to complete this topic RSV Immunization Patients Un qiana 20 months Aged Out No longer eligible b ased on patient's age to complete this topic Varicella Vaccines Aged Out No longer eligible based on patient's age to complete this topic
--- OUTSIDE RECORDS SUMMARY | 2025-07-11 12:57 | XMS_ITS | Patient Health Record ---
Author Organization [facility] Address [address] [place] [phone] Care Team Providers Care Metal Furniture Repairer Name Role Phone Nadya Piper MD Primary Care Provider Radames Fuentes Jr Unavailable Allergies Allergen (clinical drug ingredient) Drug/Non Drug Allergy documented on EMR Reaction Allergy Type Onset Date Status Levaquin Unknown Drug Allergy Active carbamazepine TEGretol Unknown Drug Allergy Act ronald Wellbutrin Unknown Drug Allergy Active Band-Aid Anti-Itch Unknown Drug Allergy Active Latex Latex Unknown Allergy Active Reason For Referral No Information Medications Medication SIG (Take, Route, Frequency, Duration) Notes Start Date End Date Status Omeprazole 20 MG Capsule Delayed Release Oral; Duration: 28 Active Vitamin D3 25 MCG (1000 UT) Tablet Oral; Duration: 28 Active One-Daily Multi-Vit/Mineral - Tablet Oral; Duration: 28 Active cloNIDine HCl 0.1 MG Tablet Oral; Duration: 28 Active Lisinopril 40 MG Tablet Oral; Duration: 28 Active MiraLax (colon prep) 17 GM/SCOOP Powder mixed with Gatorade or Crystal Light Orally begin at 5:00 p.m. the day before the procedure; Duration: 1 day 05/24/2023 Active Benztropine Mesylate 0.5 MG Tablet Oral; Duration: 28 Active lamoTRIgine 100 MG Tablet Oral; Duration: 28 Active risperiDONE 2 MG Tablet Oral; Duration: 28 Active Loratadine 10 MG Tablet Oral; Duration: 28 Active fluvoxaMINE Maleate 100 MG Tablet Oral; Duration: 28 Active hydroCHLOROthiazide 12.5 MG Tablet Oral; Duration: 28 Active Immunizations Vaccine Route Administration Date Status Comme nts Influenza Unknown 05/24/2022 Administered Social History Tobacco Use: Social History Observation Description Date Details (start date - stop date) Never Smoker NA - NA Social History Drugs/Alcohol: Social Info Question Answer Notes Alcohol Screen Did you have a drink containing alcohol in the past year? No Points 0 Interpretation Negative Tobacco Use: Social Info Question Answer Notes Tobacco Use/Smoking Patient is a nonsmoker Additional Details Category Social Info Options Details Miscellaneous: Marital status: single Occupation: works full-time Problems Problem Type SNOMED Code ICD Code Onset Dates Problem Status W/U Status Risk Notes Problem Colon cancer screening (912523896) Colon cancer screening (Z12.11) Active confirmed Problem Gastroesophageal reflux disease (907017566) GERD (gastroesophageal reflux disease) (K21.9) Active confirmed Problem Gastroesophageal reflux disease (300639596) Gastroesophageal reflux disease, unspecified whether esophagitis present (K21.9) Active confirmed Plan Of Treatment Future Test Test Name Order Date UPPER GI ENDOSCOPY 05/24/2023 COLONOSCOPY 05/24/2023 Insurance Providers Payer Name Payer Address Payer Phone Subscriber Number Group Number Insured Name Patient Relationship to Insured Coverage Start Date Coverage End Date MED[place]ARE OF [place] [address] [place] [id number] MONICA ESPINOZA Self - patient is the insured MEDICAID OF [facility] [address] [place] [address] [phone] [id number] MONICA SEPINOZA Self - patient is the insured Medical (General) History Medical History History ICD Code Hypertension Asthma Bipolar disorder Sciatica Vitamin D deficiency Coarctation of aorta Elevated body mass index Surgical History Surgery Date(Month/Year) Balloon angioplasty for correction of ao rtic coarctation 1991
== END 2025-07-11 11:13 | disposition home or self-care (01) ==
LOC: HO.HMCH 10:45
PROVIDERS: PCP Internal Medicine; Visit Provider Internal Medicine
DX: Z00.00 Encounter for general adult medical examination without abnormal findings (principal); Z23 Encounter for immunization

== ENCOUNTER → 2025-07-11 10:45 | Outpatient (BNVA) | payer MEDICARE, MEDICAID, SELFPAY | PROVIDERS: PCP Internal Medicine; Visit Provider Internal Medicine | DX: Z00.00 Encounter for general adult medical examination without abnormal findings (principal); Z23 Encounter for immunization; Z13.31 Encounter for screening for depression | CPT/HCPCS: 90471; 90656; 96127; 99396 ==

== ENCOUNTER 2025-07-15 10:34 | Outpatient (REF) | payer MEDICARE, MEDICAID, SELFPAY ==
[2025-07-15 15:06] LABS: PSA,Total (Free>4and<10) 0.48 ng/mL (0.00-4.00)
== END 2025-07-15 10:35 | disposition home or self-care (01) ==
LOC: HO.HMGCLDS 10:34
PROVIDERS: PCP Internal Medicine; Visit Provider Internal Medicine
DX: Z00.00 Encounter for general adult medical examination without abnormal findings (principal); Z12.5 Encounter for screening for malignant neoplasm of prostate
CPT/HCPCS: 36415; 84153